=== PATIENT | female | born 1950 | race Caucasian/White ===

== ENCOUNTER 2020-10-03 07:44 | Outpatient (REF) | payer MEDICARE, SELFPAY ==
[2020-10-03 11:28] LABS: Estimated Average Glucose 146 mg/dL; Hemoglobin A1c % 6.7 %
[2020-10-03 12:42] LABS: Creatinine Urine 179.69 mg/dL; Microalbum/Creatinine Ratio Ur 5.5 ug/mg cr
== END 2020-10-03 07:45 | disposition home or self-care (01) ==
LOC: HO.MANLR 07:44
PROVIDERS: PCP Internal Medicine; Visit Provider Internal Medicine
DX: E11.9 Type 2 diabetes mellitus without complications (principal)
CPT/HCPCS: 82043; 83036

== ENCOUNTER 2021-01-09 10:37 | Outpatient (REF) | payer MEDICARE, SELFPAY ==
[2021-01-09 12:58] LABS: Estimated Average Glucose 140 mg/dL; Hemoglobin A1c % 6.5 %
[2021-01-09 13:31] LABS: Alanine Aminotransferase 39 U/L (0-31); Albumin Level 4.3 g/dL (3.5-5.0); Alkaline Phosphatase 78 U/L (39-117); Anion Gap 13 (12-20); Aspartate Amino Transferase 30 U/L (5-31); Bilirubin Total 0.5 mg/dL (0.0-1.0); Blood Urea Nitrogen 15 mg/dL (9-16); Calcium 9.2 mg/dL (8.4-10.2); Carbon Dioxide 29 mmol/L (22-29); Chloride 102 mmol/L (96-108); Cholesterol 151 mg/dL; Estimated Glomerular Filt Rate > 60; Glucose Fasting 153 mg/dL (60-99); HDL Cholesterol 37 mg/dL; LDL Cholesterol Calculated 89 mg/dl; Sodium 140 mmol/L (135-145); Total Protein 7.1 g/dL (6.5-8.0); Triglycerides 129 mg/dL
== END 2021-01-09 10:38 | disposition home or self-care (01) ==
LOC: HO.MANLDS 10:37
PROVIDERS: PCP Internal Medicine; Visit Provider Internal Medicine
DX: E11.9 Type 2 diabetes mellitus without complications (principal)
CPT/HCPCS: 36415; 80053; 80061; 83036

== ENCOUNTER 2021-04-18 08:21 | Outpatient (REF) | payer MEDICARE, SELFPAY ==
[2021-04-18 13:14] LABS: Estimated Average Glucose 154 mg/dL
== END 2021-04-18 08:22 | disposition home or self-care (01) ==
LOC: HO.MANLDS 08:21
PROVIDERS: PCP Internal Medicine; Visit Provider Internal Medicine
DX: E11.9 Type 2 diabetes mellitus without complications (principal)
CPT/HCPCS: 36415; 83036

== ENCOUNTER 2021-07-27 08:05 | Outpatient (REF) | payer MEDICARE, SELFPAY ==
[2021-07-27 11:27] LABS: Estimated Average Glucose 174 mg/dL; Hemoglobin A1c % 7.7 %
== END 2021-07-27 08:06 | disposition home or self-care (01) ==
LOC: HO.MANLDS 08:05
PROVIDERS: PCP Internal Medicine; Visit Provider Internal Medicine
DX: E11.9 Type 2 diabetes mellitus without complications (principal)
CPT/HCPCS: 36415; 83036

== ENCOUNTER 2021-10-02 10:57 | Outpatient (REF) | payer MEDICARE, SELFPAY ==
[2021-10-02 14:18] LABS: Estimated Average Glucose 197 mg/dL; Hemoglobin A1c % 8.5 %
== END 2021-10-02 10:58 | disposition home or self-care (01) ==
LOC: HO.MANLDS 10:57
PROVIDERS: PCP Internal Medicine; Visit Provider Internal Medicine
DX: E11.9 Type 2 diabetes mellitus without complications (principal)
CPT/HCPCS: 36415; 83036

== ENCOUNTER 2022-01-01 11:41 | Outpatient (REF) | payer MEDICARE, SELFPAY ==
[2022-01-01 13:43] LABS: Estimated Average Glucose 169 mg/dL; Hemoglobin A1c % 7.5 %
[2022-01-01 14:13] LABS: Creatinine Urine 286.75 mg/dL; Microalbum/Creatinine Ratio Ur 7.3 ug/mg cr
[2022-01-01 14:16] LABS: Alanine Aminotransferase 43 U/L (0-31); Albumin Level 4.3 g/dL (3.5-5.0); Alkaline Phosphatase 67 U/L (39-117); Anion Gap 15 (12-20); Aspartate Amino Transferase 35 U/L (5-31); Bilirubin Total 0.7 mg/dL (0.0-1.0); Blood Urea Nitrogen 17 mg/dL (9-16); Calcium 9.7 mg/dL (8.4-10.2); Carbon Dioxide 27 mmol/L (22-29); Chloride 101 mmol/L (96-108); Cholesterol 140 mg/dL; Estimated Glomerular Filt Rate > 60; Glucose Fasting 135 mg/dL (60-99); HDL Cholesterol 31 mg/dL; LDL Cholesterol Calculated 81 mg/dl; Potassium 3.6 mmol/L (3.3-5.1); Sodium 139 mmol/L (135-145); Total Protein 7.3 g/dL (6.5-8.0); Triglycerides 140 mg/dL
== END 2022-01-01 11:42 | disposition home or self-care (01) ==
LOC: HO.MANLDS 11:41
PROVIDERS: PCP Internal Medicine; Visit Provider Internal Medicine
DX: E11.9 Type 2 diabetes mellitus without complications (principal)
CPT/HCPCS: 36415; 80053; 80061; 82043; 83036

== ENCOUNTER 2022-04-30 08:28 | Outpatient (REF) | payer MEDICARE, SELFPAY ==
[2022-04-30 11:59] LABS: Estimated Average Glucose 154 mg/dL
[2022-04-30 12:45] LABS: Alanine Aminotransferase 30 U/L (0-31); Albumin Level 4.1 g/dL (3.5-5.0); Alkaline Phosphatase 77 U/L (39-117); Anion Gap 12 (12-20); Aspartate Amino Transferase 27 U/L (5-31); Bilirubin Total 0.4 mg/dL (0.0-1.0); Blood Urea Nitrogen 22 mg/dL (9-16); Calcium 9.3 mg/dL (8.4-10.2); Carbon Dioxide 28 mmol/L (22-29); Chloride 104 mmol/L (96-108); Cholesterol 123 mg/dL; Estimated Glomerular Filt Rate > 60; Glucose Random 162 mg/dL (60-115); HDL Cholesterol 31 mg/dL; LDL Cholesterol Calculated 63 mg/dl; Potassium 3.9 mmol/L (3.3-5.1); Sodium 140 mmol/L (135-145); Triglycerides 149 mg/dL
== END 2022-04-30 08:29 | disposition home or self-care (01) ==
LOC: HO.MANLDS 08:28
PROVIDERS: Visit Provider Internal Medicine
DX: E11.9 Type 2 diabetes mellitus without complications (principal)
CPT/HCPCS: 36415; 80053; 80061; 83036

== ENCOUNTER 2022-05-03 11:15 | Outpatient (REF) | payer MEDICARE, SELFPAY ==
--- NOTE | ~2022-05-03 | XR_ITS ---
EXAMINATION: XR KNEE, LEFT CLINICAL INFORMATION: Pain. COMPARISON: None. TECHNIQUE: 4 views of the left knee. FINDINGS: The tricompartmental joint space is maintained. There is anterior superior patellar enthesophyte. There is no visible acute fracture, dislocation or subluxation. No bony erosive changes. The soft tissues are normal. XR/XR knee LT 3V IMPRESSION: Mild degenerative changes medial and patellofemoral compartment. No visible acute fracture, dislocation or loose body is seen. Anterior superior patellar enthesophyte.
== END 2022-05-03 11:16 | disposition home or self-care (01) ==
LOC: HO.XRAY 11:15
PROVIDERS: PCP Internal Medicine; Visit Provider Internal Medicine
DX: M25.562 Pain in left knee (principal)
CPT/HCPCS: 73562

== ENCOUNTER 2022-08-02 08:02 | Outpatient (REF) | payer MEDICARE, SELFPAY ==
[2022-08-02 11:36] LABS: Estimated Average Glucose 171 mg/dL; Hemoglobin A1c % 7.6 %
== END 2022-08-02 08:03 | disposition home or self-care (01) ==
LOC: HO.MANLDS 08:02
PROVIDERS: Visit Provider Internal Medicine
DX: E11.9 Type 2 diabetes mellitus without complications (principal)
CPT/HCPCS: 36415; 83036

== ENCOUNTER 2022-10-08 07:18 | Outpatient (REF) | payer MEDICARE, SELFPAY ==
--- NOTE | ~2022-10-08 | MR_ITS ---
EXAMINATION: MR KNEE WITHOUT CONTRAST, LEFT CLINICAL INFORMATION: Left knee pain with medial swelling. COMPARISON: Left knee radiographs dated 05/03/2022. TECHNIQUE: MRI of the knee without contrast was performed using routine sequences on a high-field scanner. FINDINGS: MENISCI: Medial Meniscus: Nondisplaced, oblique inner margin/tibial articular surface tear of the meniscal body and posterior horn with inner margin blunting of the posterior root. There is a lobulated parameniscal cyst adjacent to the anterior aspect of the meniscal body measuring 2.4 x 0.8 x 1.9 cm with mild adjacent soft tissue edema. Lateral Meniscus: Intact LIGAMENTS: Cruciate: Intact Collateral: Intact EXTENSOR MECHANISM: Intact ARTICULAR CARTILAGE/BONE: Patellofemoral Compartment: Articular cartilage thinning with areas of full-thickness loss at the superior aspect of the patellar median ridge extending to both the medial and lateral patellar facet. Mild underlying subchondral cystic change/marrow edema. Central trochlea signal heterogeneity. Tiny marginal osteophytes. Medial Compartment: Weight-bearing articular cartilage thinning and signal heterogeneity with tiny marginal osteophytes. Lateral Compartment: Posterior weight-bearing lateral femoral condyle and lateral tibial plateau full-thickness articular cartilage defects measuring 0.7 and 0.4 cm in AP dimension, respectively. Tiny marginal osteophytes. JOINT FLUID AND BURSAE: Trace joint effusion and trace Jaeger's cyst. MR/MR knee LT wo con IMPRESSION: 1. Nondisplaced, oblique inner margin/tibial articular surface tear of the medial meniscal body and posterior horn with inner margin blunting of the posterior root. Parameniscal cyst adjacent to the anterior aspect of the meniscal body measuring up to 2.4 cm with mild adjacent soft tissue edema. 2. Mild tricompartmental osteoarthritis. Trace joint effusion and trace Jaeger's cyst.
== END 2022-10-08 07:19 | disposition home or self-care (01) ==
LOC: HO.MRI 07:18
PROVIDERS: Visit Provider Internal Medicine
DX: M25.562 Pain in left knee (principal)
CPT/HCPCS: 73721

== ENCOUNTER 2022-11-13 07:38 | Outpatient (REF) | payer MEDICARE, SELFPAY ==
[2022-11-13 12:29] LABS: Estimated Average Glucose 200 mg/dL; Hemoglobin A1c % 8.6 %
[2022-11-13 12:30] LABS: Alanine Aminotransferase 38 U/L (0-31); Albumin Level 3.8 g/dL (3.5-5.0); Alkaline Phosphatase 95 U/L (39-117); Anion Gap 11 (12-20); Aspartate Amino Transferase 27 U/L (5-31); Bilirubin Total 0.4 mg/dL (0.0-1.0); Blood Urea Nitrogen 19 mg/dL (9-16); Calcium 9.2 mg/dL (8.4-10.2); Carbon Dioxide 29 mmol/L (22-29); Chloride 103 mmol/L (96-108); Cholesterol 141 mg/dL; Estimated Glomerular Filt Rate > 60; Glucose Random 203 mg/dL (60-115); HDL Cholesterol 29 mg/dL; LDL Cholesterol Calculated 80 mg/dl; Potassium 3.5 mmol/L (3.3-5.1); Sodium 139 mmol/L (135-145); Total Protein 6.4 g/dL (6.5-8.0); Triglycerides 161 mg/dL
== END 2022-11-13 07:39 | disposition home or self-care (01) ==
LOC: HO.MANLDS 07:38
PROVIDERS: Visit Provider Internal Medicine
DX: E11.9 Type 2 diabetes mellitus without complications (principal)
CPT/HCPCS: 36415; 80053; 80061; 83036

== ENCOUNTER 2023-01-24 09:16 | Outpatient (REF) | payer MEDICARE, SELFPAY ==
[2023-01-24 12:22] LABS: Estimated Average Glucose 171 mg/dL; Hemoglobin A1c % 7.6 %
[2023-01-24 13:06] LABS: Creatinine Urine 201.55 mg/dL; Microalbum/Creatinine Ratio Ur 9.9 ug/mg cr
== END 2023-01-24 09:17 | disposition home or self-care (01) ==
LOC: HO.MANLDS 09:16
PROVIDERS: Visit Provider Internal Medicine
DX: E11.9 Type 2 diabetes mellitus without complications (principal)
CPT/HCPCS: 36415; 82043; 83036

== ENCOUNTER 2023-05-05 08:55 | Outpatient (REF) | payer MEDICARE, SELFPAY ==
[2023-05-05 14:09] LABS: Estimated Average Glucose 131 mg/dL; Hemoglobin A1c % 6.2 %
[2023-05-05 14:26] LABS: Alanine Aminotransferase 32 U/L (0-31); Albumin Level 3.9 g/dL (3.5-5.0); Alkaline Phosphatase 70 U/L (39-117); Anion Gap 15 (12-20); Aspartate Amino Transferase 29 U/L (5-31); Bilirubin Total 0.4 mg/dL (0.0-1.0); Blood Urea Nitrogen 19 mg/dL (9-16); Calcium 9.8 mg/dL (8.4-10.2); Carbon Dioxide 25 mmol/L (22-29); Chloride 103 mmol/L (96-108); Cholesterol 139 mg/dL; Estimated Glomerular Filt Rate > 60; Glucose Random 146 mg/dL (60-115); HDL Cholesterol 35 mg/dL; LDL Cholesterol Calculated 78 mg/dl; Potassium 3.9 mmol/L (3.3-5.1); Sodium 139 mmol/L (135-145); Total Protein 7.4 g/dL (6.5-8.0); Triglycerides 134 mg/dL
[2023-05-05 14:56] LABS: Creatinine Urine 155.99 mg/dL; Microalbum/Creatinine Ratio Ur 9.6 ug/mg cr
== END 2023-05-05 08:56 | disposition home or self-care (01) ==
LOC: HO.MANLDS 08:55
PROVIDERS: Visit Provider Internal Medicine
DX: E11.9 Type 2 diabetes mellitus without complications (principal)
CPT/HCPCS: 36415; 80053; 80061; 82043; 83036

== ENCOUNTER 2023-08-25 09:20 | Outpatient (REF) | payer MEDICARE, SELFPAY ==
[2023-08-25 13:31] LABS: Estimated Average Glucose 128 mg/dL; Hemoglobin A1c % 6.1 % (<6.0)
[2023-08-25 13:43] LABS: Alanine Aminotransferase 28 U/L (0-31); Albumin Level 4.1 g/dL (3.5-5.0); Alkaline Phosphatase 58 U/L (39-117); Anion Gap 14 (12-20); Aspartate Amino Transferase 29 U/L (5-31); Bilirubin Total 0.4 mg/dL (0.0-1.0); Blood Urea Nitrogen 17 mg/dL (9-16); Calcium 9.5 mg/dL (8.4-10.2); Carbon Dioxide 26 mmol/L (22-29); Chloride 103 mmol/L (96-108); Cholesterol 136 mg/dL (<200); Estimated Glomerular Filt Rate > 60; Glucose Random 138 mg/dL (60-115); HDL Cholesterol 31 mg/dL (>40); LDL Cholesterol Calculated 69 mg/dL (<100); Potassium 3.4 mmol/L (3.3-5.1); Sodium 140 mmol/L (135-145); Total Protein 7.4 g/dL (6.5-8.0); Triglycerides 181 mg/dL (<150)
== END 2023-08-25 09:21 | disposition home or self-care (01) ==
LOC: HO.MANLDS 09:20
PROVIDERS: Physician Assistant; Visit Provider Internal Medicine
DX: E11.9 Type 2 diabetes mellitus without complications (principal)
CPT/HCPCS: 36415; 80053; 80061; 83036

== ENCOUNTER 2023-12-23 08:35 | Outpatient (REF) | payer MEDICARE, SELFPAY ==
[2023-12-23 14:01] LABS: Alanine Aminotransferase 20 U/L (0-31); Albumin Level 3.9 g/dL (3.5-5.0); Alkaline Phosphatase 65 U/L (39-117); Anion Gap 10 (12-20); Aspartate Amino Transferase 20 U/L (5-31); Bilirubin Total 0.5 mg/dL (0.0-1.0); Blood Urea Nitrogen 16 mg/dL (9-16); Calcium 9.7 mg/dL (8.4-10.2); Carbon Dioxide 30 mmol/L (22-29); Chloride 103 mmol/L (96-108); Cholesterol 141 mg/dL (<200); Estimated Glomerular Filt Rate > 60; Glucose Random 158 mg/dL (60-115); HDL Cholesterol 36 mg/dL (>40); LDL Cholesterol Calculated 84 mg/dL (<100); Potassium 3.3 mmol/L (3.3-5.1); Sodium 140 mmol/L (135-145); Total Protein 7.7 g/dL (6.5-8.0); Triglycerides 109 mg/dL (<150)
[2023-12-23 16:24] LABS: Estimated Average Glucose 140 mg/dL; Hemoglobin A1c % 6.5 % (<6.0)
== END 2023-12-23 08:36 | disposition home or self-care (01) ==
LOC: HO.MANLDS 08:35
PROVIDERS: Visit Provider Physician Assistant
DX: E11.9 Type 2 diabetes mellitus without complications (principal)
CPT/HCPCS: 36415; 80053; 80061; 83036

== ENCOUNTER 2024-03-24 07:37 | Outpatient (REF) | payer MEDICARE, SELFPAY ==
[2024-03-24 13:57] LABS: Estimated Average Glucose 123 mg/dL; Hemoglobin A1c % 5.9 % (<6.0)
== END 2024-03-24 07:38 | disposition home or self-care (01) ==
LOC: HO.MANLDS 07:37
PROVIDERS: Visit Provider Physician Assistant
DX: E11.9 Type 2 diabetes mellitus without complications (principal)
CPT/HCPCS: 36415; 83036

== ENCOUNTER 2024-07-06 11:48 | Outpatient (REF) | payer MEDICARE, SELFPAY ==
[2024-07-06 14:09] LABS: MANUAL DIFF FLAG NO
[2024-07-06 14:17] LABS: Basophils Percent Auto 0.6 % (0-2); Eosinophils Absolute Auto 0.2 X10*3/uL (0.0-0.4); Eosinophils Percent Auto 2.3 % (0-4); Hematocrit 38.2 % (37.0-47.0); Hemoglobin 13.2 g/dl (12.0-16.0); Imm Gran Abs Auto 0.02 X10*3/uL (0.00-0.03); Imm Gran Pct Auto 0.3 % (0.0-0.4); Lymphocytes Percent Auto 30.5 % (20-40); Mean Corpuscular HGB Conc 34.6 g/dl (31.0-35.0); Mean Corpuscular Volume 92.7 fL (80.0-98.0); Mean Platelet Volume 10.2 fL (9.4-12.3); Monocytes Absolute Auto 0.6 X10*3/uL (0.1-1.2); Monocytes Percent Auto 8.5 % (2-11); Neutrophils Absolute Auto 3.8 x10*3/uL (2.0-8.3); Neutrophils Percent Auto 57.8 % (45-73); Platelet Count 233 X10*3/uL (160-400); Red Blood Count 4.12 X10*6/uL (4.20-5.50); Red Cell Distribution Width 11.9 % (11.0-16.0); White Blood Count 6.6 X10*3/uL (4.8-10.8)
[2024-07-06 14:34] LABS: Alanine Aminotransferase 23 U/L (0-31); Alkaline Phosphatase 55 U/L (39-117); Anion Gap 10 (12-20); Aspartate Amino Transferase 19 U/L (5-31); Bilirubin Total 0.5 mg/dL (0.0-1.0); Blood Urea Nitrogen 15 mg/dL (9-16); Calcium 9.3 mg/dL (8.4-10.2); Carbon Dioxide 27 mmol/L (22-29); Chloride 105 mmol/L (96-108); Cholesterol 139 mg/dL (<200); Estimated Glomerular Filt Rate > 60; Glucose Random 111 mg/dL (60-115); HDL Cholesterol 37 mg/dL (>40); LDL Cholesterol Calculated 81 mg/dL (<100); Potassium 3.8 mmol/L (3.3-5.1); Sodium 138 mmol/L (135-145); Total Protein 7.1 g/dL (6.5-8.0); Triglycerides 107 mg/dL (<150)
[2024-07-06 14:40] LABS: Estimated Average Glucose 117 mg/dL; Hemoglobin A1c % 5.7 % (<6.0)
[2024-07-06 14:53] LABS: Vitamin D 25-OH Total 49.1 ng/mL (>30)
== END 2024-07-06 11:49 | disposition home or self-care (01) ==
LOC: HO.WFDLDS 11:48
PROVIDERS: Visit Provider Internal Medicine
DX: E11.9 Type 2 diabetes mellitus without complications (principal); I10 Essential (primary) hypertension
CPT/HCPCS: 36415; 80053; 80061; 82306; 83036; 85025

== ENCOUNTER 2025-02-16 09:02 | Outpatient (REF) | payer MEDICARE, SELFPAY ==
--- OUTSIDE RECORDS SUMMARY | 2025-02-16 09:50 | XMS_ITS | Continuity of Care Document ---
Author Organization [facility] Address [address] [place] [address] Phone Care Team Providers Care Delivery Lead Name Role Phone Alex BARRAZA, RVT, GERALD, Mykel Unavailable U navailable Allergies, Adverse Reactions, Alerts Substance Reaction Status Criticality POTASSIUM CLAVULANATE Active No Inf ormation AMOXICILLIN TRIHYDRATE Active No In formation Procedures Procedure Date Office/Outpt E&M Established 15 Mins- CT & [place] Duplex Scan-extrem Veins; Comp- CT & [place] Duplex Scan-extrem Veins; Uni/ CT & [place] N Duplex Scan-extrem Veins; Uni/ CT & [place] N Inj Scleros Solut; Mx Veins 1- CT & [place] N Ultrason Guidan Needle Bx-rad- CT & [place] N Endovenous Laser, 1st Vein- CT & [place] Duplex Scan-extrem Veins; Uni/ CT & [place] N Duplex Scan-extrem Veins; Uni/ CT & [place] N Inj Scleros Solut; Mx Veins 1- CT & [place] N Ultrason Guidan Needle Bx-rad- CT & [place] N Varithena, Single Truncal Vein - CT & [place] Endovenous Laser, 1st Vein- CT & [place] Office/Outpt E&M Established 10 Mins- Te lemedicine CT & [place] Offic Cons New/estab Mod-hi 60 Duplex Scan-extrem Veins; Comp 24 Advance Directives Directive Yes / No Effective Date File Name Other Directive No 10/14/2024 N/A WARNING:The information contained in this section is historical and is provided for information only and does not constitute a legal document or any assurance that the information is still accurate. Please verify the information with the luu of the legal document before using it for clinical purposes. Encounters Encounter Description Practice Location Reason(s) For Visit Diagnoses Date Provider Providers Copied on Encounter Office/Outpt E&M Established 15 Mins- CT & [place] [facility], [address] [place] [address] Dr Jerome [address]Suite [place], [id number], tel:[phone] [facility] [place] [facility] Cramp and spasmRestless legs syndromePrurit us, unspecifiedTyp e 2 diabetes mellitus without complicationsE ssential (primary) hypertensionLo calized edema 4 Alex BARRAZA RVT, RPVI Robert. [address] [place] [address], [id number] , [place]. tel:[phone] Referring Provider: Neal Georges, [address] [place], [address]. tel:[phone] [facility], [address] [place] [address] Dr Jerome [address]SuC[place]illo [place], [id number], [place] tel:[phone] [facility] Varicose veins of bilateral lower extremities with pain 4 Alex BARRAZA RVT, RPVI Robert. [address] [place] [address], [id number] , [place]. tel:[phone] Referring Provider: Neal Georges, [address] [place], [address]. tel:[phone] [facility], [address] [place] [address] Dr Jerome [address]SuC[place]illo [place], [id number], tel:[phone] [facility] Encounter for follow-up examination after completed treatment for conditions other than malignant neoplasmChroni c venous hypertension (idiopathic) with other complications of left lower extremity 4 Alex BARRAZA RVT, GERALD Hogue. [address], [address], [place], [place], [id number] , [place]. tel:[phone] Referring Provider: Neal Georges, [address], [place], [address]. tel:[phone] [facility], [address] [place] [address] Dr [address], [id number], [place] tel:[phone] [facility] - [place] [facility] Encounter for follow-up examination after completed treatment for conditions other than malignant nePain in left leg 4 Alex BARRAZA RVT, GERALD Hogue. [address], [address], [place], [place], [id number] , [place]. [phone] Referring Provider: Neal Georges, [address], [place], [address]. tel:[phone] [facility], [address] [place] [address] Dr [address], [id number], [place] tel:[phone] [facility] [place] [facility] Varicose veins of left lower extremity with other complications 4 Matt Cormier . [address], [address], [place], [place], [id number] , [place]. [phone] Referring Provider: Neal Georges, [address], [place], [address]. tel:[phone] [facility], [address] [place] [address] [address] [address], [id number], [place] tel:[phone] [facility] [place] [facility] Varicose veins of left lower extremity with other complications 4 Alex BARRAZA RVT, GERALD Hogue. [address], [address], [place], [place], [id number] , [place]. [phone] Referring Provider: Neal Georges, [address], [place], [address]. tel:[phone] [facility], [address] [place] [address] [address]Suite [place] Bar[place], [id number], [place] tel:[phone] CVR - [facility] Encounter for follow-up examination after completed treatment for conditions other than malignant neoplasmPain in right leg 4 Alex BARRAZA RVT, GREALD Hogue. [address], Suite [facility], [place], [place], [id number] , [place]. [phone] Referring Provider: Neal Georges, [address], [place], [address]. tel:[phone] [facility], [address] [place] [address] [address] [place]illo Bar[place], [id number], [place] tel:[phone] CVR - [facility] Encounter for follow-up examination after completed treatment for conditions other than malignant neoplasmVarico se veins of right lower extremity with pain 4 Alex BARRAZA RVT, GERALD Hogue. [address], [address], [place], [place], [id number] , [place]. [phone] Referring Provider: Neal Georges, [address], [place], [address]. tel:[phone] [facility], [address] [place] [address] [address] [place]illo Bar[place], [id number], [place] tel:[phone] CVR - [facility] Varicose veins of right lower extremity with other complications 4 Alex BARRAZA RVT, RPVI Robert. [address], [address], [place], [place], [id number] , [place]. [phone] Referring Provider: Neal Georges, [address], [place], [address]. tel:[phone] [facility], [address] [place] [address] [address] [address], [id number], [place] tel:[phone] [facility] [place] [facility] Varicose veins of right lower extremity with other complications Oct-3 0 4 Alex BARRAZA RVT, GERALD Hogue. [address], [address], [place], [id number] , [place]. tel:[phone] Referring Provider: Neal Georges, [address] [place], [address]. tel:[phone] [facility], [address] [place] [address] [address] [address], [id number], [place] tel:[phone] [facility] [place] [facility] Varicose veins of right lower extremity with other complications Oct-2 4 Alex BARRAZA RVT, GERALD [place]. [address] [place] [address], Suite [facility], [place], [id number] , [place]. tel:[phone] Referring Provider: Neal Georges, [address] [place], [address]. tel:[phone] [facility], [address] [place] [address] Dr Jerome [address] [place], [id number], [place] tel:[phone] [facility] No Information Jul-2 4 Alex BARRAZA RVT, GERALD Hogue. [address] [place] [address], [address], [place], [id number] , [place]. tel:[phone] Office/Outpt E&M Established 10 Mins- Telemedicine CT & [place] [facility], [address] [place] [address] Dr Jerome [address], [id number], [place] tel:[phone] [facility] Chronic venous hypertension (idiopathic) with other complications of bilateral lower extremityCramp and spasmRestless legs syndromeType 2 diabetes mellitus without complicationsE ssential (primary) hypertensionPr uritus, unspecified Apr-0 4 Alex BARRAZA RVT, GERALD Hogue. [address] [facility], [address], [place], [id number] , [place]. tel:[phone] Referring Provider: Neal Georges, [address], [place], [address]. tel:[phone] Offic Cons New/estab Mod-hi 60 [facility], [address], [place], [id number], tel:[phone] [facility] Varicose veins of bilateral lower extremities with other complicationsP ain in right lower legPain in left lower legPain in right legType 2 diabetes mellitus without complicationsR estless legs syndromeEssent ial (primary) hypertensionVe nous insufficiency (chronic) (peripheral)Pr uritus, unspecifiedPai n in left legCramp and spasmLocalized edema 4 Alex BARRAZA RVT, GERALD Hogue. [address] [place] [address], [place], [place], [id number] , [place]. tel:[phone] Referring Provider: Neal Georges, [address], [place], [address]. tel:[phone] [facility], [address] [place] [address] [address], [place], [id number], [place] tel:[phone] CVR - [facility] Chronic venous hypertension (idiopathic) with other complications of bilateral lower extremity 4 Alex BARRAZA RVT, GERALD Hogue. [address] [place] [address], [place], [place], [id number] , [place]. tel:[phone] Referring Provider: Neal Georges, [address], [place], [address]. tel:[phone] Family History Family Member Type Diagnosis Age At Onset No Information Payers Payer name Insurance type Covered republican ID Nia rodriguez(s) [facility] Medicare Advantage [id number] Social History Type Description Quantity Date Captured Comments Alcohol Use Details Unknown Caffeine Use Details Unknown Tobacco Use Status Current non-smoker Smoking Status Never Smoker Non-Smoking Tobacco Use Details : No Details Available : No Details Available Sex Female Vital Signs Date / Time: Height Weight BMI Pulse Rate Blood Pressure Temperature Respiratory Rate Body Surface Area Head Circumference Head Circ. Percentile Wt./Josiah. Percentile BMI percentile Pulse Ox Inhaled Ox 91.630 kg (202.00 lbs) 33.7 0 kg/m eter (2) 140/70 mm[Hg] Chief Complaint And Reason For Visit No Information Reason For Referral Reason For Referral No Information Plan Of Treatment Date Type Action Status Goal Diet education completed Goal Diet education completed Referral Ordered: Weight management: Referral to physician timeframe: 3 Months (related to Body mass index (BMI) 33.0-33.9, adult) ordered Referral Ordered: Weight management: Referral to physician timeframe: 3 Months (related to Body mass index (BMI) 33.0-33.9, adult) ordered Appointment Malia Miller BOOKED Appointment Malia Miller BOOKED History Of Present Illness Encounter Date Complaint History Of Prese nt Illness No Information Functional Status Date Functional Assessmen t No Information Instructions Date Instruction Additional Infor matcasper Diet education Related to Body mass index (BMI) 33.0-33.9, adult Giving Encouragement to exercise Related to Body mass index (BMI) 33.0-33.9, adult Lifestyle education Related to B donavon mass index (BMI) 33.0-33.9, adult Compression stocking usage as conservative measure Related to Localized edema Patient education booklet given Related to Localized edema Compression stocking usage as conservative measure Related to Chronic venous hypertension (idiopathic) with other complications of bilateral lower extremity Patient education booklet given Related to Chronic venous hypertension (idiopathic) with other complications of bilateral lower extremity Diet education Related to Body mass index (BMI) 33.0-33.9, adult Giving Encouragement to exercise Related to Body mass index (BMI) 33.0-33.9, adult Lifestyle education Related to B donavon mass index (BMI) 33.0-33.9, adult Patient education booklet given Related to Varicose veins of bilateral lower extremities with other complications Assessments Type Assessment Date No Information Patient Care Teams Name Effective Dates (start - stop) Status Members No Information
--- OUTSIDE RECORDS SUMMARY | 2025-02-16 09:50 | XMS_ITS | Data Portability ---
Author Organization [facility] Address [address] [place] [address] Assessment Encounter Date Assessment Date Assessment LastModified by Organization Details LastModified Time 03/29/2024 03/29/2024 [id number] [place] [id number] (WOOD INSPECTOR) MDM MODERATE MUST MEET 2 OUT OF 3 ELEMENTS: PROBLEMS, DATA OR RISK ELEMENT 1: PROBLEMS ADDRESSED 1 OR MORE CHRONIC ILLNESS WITH EXACERBATION OR 2 OR MORE STABLE CHRONIC ILLNESSES OR 1 UNDIAGNOSED NEW PROBLEM OR 1 ACUTE ILLNESS W/SYMPTOMS OR 1 ACUTE COMPLICATED INJURY ELEMENT 2: DATA MUST MEET 1 OF 3 CATEGORIES CATEGORY 1: REVIEW OF PRIOR EXTERNAL NOTES, REVIEW OF RESULTS, ORDERING OF EACH TEST, ASSESSMENT REQUIRING INDEPENDENT HISTORIAN OR CATEGORY 2: INDEPENDENT INTERPRETATION OF TESTS BY ANOTHER PHYSICIAN OR SPECIALIST OR CATEGORY 3: DISCUSSION OF MGT OR TEST INTERPRETATION W/EXTERNAL PHYSICIAN OR SPECIALIST ELEMENT 3: RISK RISK OF COMPLICATIONS AND/OR MORBIDITY OR MORTALITY OF PATIENT MANAGEMENT PROVIDER MUST THOROUGHLY DOCUMENT EACH ELEMENT THAT IS COVERED Not available 03/29/2024 11:37:32 05/26/2024 05/26/2024 [id number] [place] [id number] (WOOD INSPECTOR) : MDM LOW MUST MEET 2 OF 3 ELEMENTS: PROBLEMS, DATA OR RISK ELEMENT 1: PROBLEMS ADDRESSED (LOW): 2 OR MORE SELF-LIMITED OR MINOR PROBLEMS OR 1 STABLE CHRONIC ILLNESS OR 1 ACUTE UNCOMPLICATED ILLNESS OR INJURY ELEMENT 2: DATA TO BE REVISED AND ANALYZED (LOW) MUST MEET 1 OF 2 CATEGORIES: CATEGORY 1. REVIEW OF PRIOR EXTERNAL NOTES/RESULTS, ORDERING OF TEST(S) CATEGORY 2. ASSESSMENT REQUIRING INDEPENDENT HISTORIAN(S) INCLUDE WHO THE HISTORIAN IS AND RELATION TO PT AND WHY PT IS UNABLE TO GIVE COMPLETE HISTORY ELEMENT 3: RISK (LOW) RISK OF COMPLICATIONS AND/OR MORBIDITY OR MORTALITY OF PATIENT MANAGEMENT PROVIDER MUST THOROUGHLY DOCUMENT ALL OF THE ELEMENTS COVERED Not available 05/26/2024 11:48:22 07/09/2024 07/09/2024 [id number] [place] [id number] (WOOD INSPECTOR) MDM MODERATE MUST MEET 2 OUT OF 3 ELEMENTS: PROBLEMS, DATA OR RISK ELEMENT 1: PROBLEMS ADDRESSED 1 OR MORE CHRONIC ILLNESS WITH EXACERBATION OR 2 OR MORE STABLE CHRONIC ILLNESSES OR 1 UNDIAGNOSED NEW PROBLEM OR 1 ACUTE ILLNESS W/SYMPTOMS OR 1 ACUTE COMPLICATED INJURY ELEMENT 2: DATA MUST MEET 1 OF 3 CATEGORIES CATEGORY 1: REVIEW OF PRIOR EXTERNAL NOTES, REVIEW OF RESULTS, ORDERING OF EACH TEST, ASSESSMENT REQUIRING INDEPENDENT HISTORIAN OR CATEGORY 2: INDEPENDENT INTERPRETATION OF TESTS BY ANOTHER PHYSICIAN OR SPECIALIST OR CATEGORY 3: DISCUSSION OF MGT OR TEST INTERPRETATION W/EXTERNAL PHYSICIAN OR SPECIALIST ELEMENT 3: RISK RISK OF COMPLICATIONS AND/OR MORBIDITY OR MORTALITY OF PATIENT MANAGEMENT PROVIDER MUST THOROUGHLY DOCUMENT EACH ELEMENT THAT IS COVERED Not available 07/09/2024 10:44:38 11/17/2024 11/17/2024 [id number] [place] [id number] (WOOD INSPECTOR) MDM MODERATE MUST MEET 2 OUT OF 3 ELEMENTS: PROBLEMS, DATA OR RISK ELEMENT 1: PROBLEMS ADDRESSED 1 OR MORE CHRONIC ILLNESS WITH EXACERBATION OR 2 OR MORE STABLE CHRONIC ILLNESSES OR 1 UNDIAGNOSED NEW PROBLEM OR 1 ACUTE ILLNESS W/SYMPTOMS OR 1 ACUTE COMPLICATED INJURY ELEMENT 2: DATA MUST MEET 1 OF 3 CATEGORIES CATEGORY 1: REVIEW OF PRIOR EXTERNAL NOTES, REVIEW OF RESULTS, ORDERING OF EACH TEST, ASSESSMENT REQUIRING INDEPENDENT HISTORIAN OR CATEGORY 2: INDEPENDENT INTERPRETATION OF TESTS BY ANOTHER PHYSICIAN OR SPECIALIST OR CATEGORY 3: DISCUSSION OF MGT OR TEST INTERPRETATION W/EXTERNAL PHYSICIAN OR SPECIALIST ELEMENT 3: RISK RISK OF COMPLICATIONS AND/OR MORBIDITY OR MORTALITY OF PATIENT MANAGEMENT PROVIDER MUST THOROUGHLY DOCUMENT EACH ELEMENT THAT IS COVERED Not available 11/17/2024 09:29:32 12/14/2024 12/14/2024 Patient agreed and verbally consents to this audio and video Telehealth appt via a secure platform [email or web address] Not available 12/14/2024 15:11:39 Plan of Treatment Reminders Order Date Submit Date Provider Last Modified By Organization Details Last Modified Time Details Appointments FOLLOW UP 15 2024 11:30A M DR WOODRUFF Not available Not available Not available MEDICARE ANNUAL WELLNESS 2024 10:30A M DR WOODRUFF Not available Not available Not available Lab HbA1c (hemoglob in A1c), blood 2024 025 [facility], [address] [place] [address], [id number], 11/17/2024 09:39:03 CMP, serum or plasma 2024 025 [facility], [address] [place] [address], [id number], 11/17/2024 09:39:03 HbA1c (hemoglob in A1c), blood 2023 024 [facility], [address] [place] [address], [id number], 07/07/2024 11:09:45 CMP, serum or plasma 2023 024 [facility], [address] [place] [address], [id number], 07/07/2024 11:09:45 CBC 2023 024 [facility], [address] [place] [address], [address], 03/29/2024 11:50:51 vitamin D, 25-hydrox y, total, serum 2023 024 [facility], [address] [place] [address], [id number], 03/29/2024 11:50:51 lipid panel, blood 2023 024 [facility], [address] [place] [address], [address], 03/29/2024 11:50:51 Referral None recorded. Procedures None recorded. Surgeries None recorded. Imaging None recorded. Medication Orders valacyclo vir 500 mg tablet 2024 025 [facility]acy #[id number], [address] [place], [address], 12/14/2024 09:45:22 amlodipin e 5 mg tablet 2023 024 [facility], [place], [address], 05/26/2024 11:48:37 losartan 100 mg tablet 2023 024 [facility] [place], [address], 03/29/2024 11:42:36 Patient TargetsNo targets recorded. Patient Instructions Encounter Date Encounter Id Patient Instructions Last Modified By Organization Details Last Modified Time 07/09/2024 [id number] leg and ankle edema: care instructions Not available 07/09/2024 10:44:07 learning about type 2 diabetes Not available 07/09/2024 10:44:07 type 2 diabetes: care instructions Not available 07/09/2024 10:44:07 high blood pressure: care instructions Not available 07/09/2024 10:44:07 learning about high blood pressure Not available 07/09/2024 10:44:07 11/17/2024 [id number] leg and ankle edema: care instructions Not available 11/17/2024 09:34:24 Reason for Referral None Reported. Results Created Date Observation Date Name Description Value Unit Range Abnormal Flag Note LastModifiedBy Organization Detail LastModifiedTime 06/16/20 24 06/15/2024 leigh ann SLOAN, digit al, bilat eral No observ ation record ed. [email or web address] [address], [address], 06/16/2024 09:33:11 10/15/20 24 10/14/2024 US, robinsonle x, arter ial, lower extre mity No observ ation record ed. [email or web address] [facility] [address] [address], [place], [address], 10/15/2024 08:57:36 11/01/19 25 11/01/2024 XR, chest , 2 view No observ ation record ed. [facility] [address], [place], [address], 11/01/2024 22:34:52 Result Notes None recorded. Problems Name Problem SNOMED Code Status Onset Date Resolution Date Notes Provider Name and Address Organization Details Recorded Time Non-alcoh olic fatty liver disease without non-alcoh olic steatohep atitis 232974430 Active 2018 Not Available [facility] 1 13:47:44 Edema of lower extremity 833487154 Active 2019 Not Available [facility] 1 13:47:44 Pain of left knee region 638661607954 109 Active 2021 Neal Woodruff DO [address] [place] [address], [phone], [facility] 2 10:26:57 Tear of medial meniscus of knee 785703666 Active 2021 Neal Woodruff DO [address] [place] [address], [phone], [facility] 2 10:29:31 Obstructi ve sleep apnea syndrome 13172814 Active 2021 Neal Woodruff DO [address] [place] [address], [address], [facility] 2 10:34:54 Instabili ty of joint of left knee 756903646557 9106 Active 2021 Neal Woodruff DO [address] [place] [address], [address], [facility] 2 15:35:15 Pain of left knee joint 387714935751 107 Active 2021 YRIS MITTAL [address] [place] [address], [address], [facility] 2 16:24:02 Metatarsa lgia 05583010 Active 2022 Neal Woodruff DO [address] [place] [address], [address], [facility] 3 20:39:01 Onychomyc osis of toenails 352924168 Active 2022 Neal Woodruff, DO [address] [place] [address], [address], [facility] 3 13:41:43 Body mass index 30+ - obesity 941450926 Active 2017 Not Available [facility] 1 13:47:44 Tear of medial meniscus of knee 186938596 Active 2023 Neal Woodruff, DO [address] [place] [address], [address], [facility] 4 12:20:14 Varicose veins of lower extremity 36629972 Active 2023 Neal Woodruff DO [address] [place] [address], [address], [facility] 4 12:26:16 Cough 12636907 Active 2023 Neal Woodruff DO [address] [place] [address], [address], [facility] 4 10:01:35 Type 2 diabetes mellitus 85035263 Active 2017 Not Available [facility] 1 13:47:44 Essential hypertens ion 83348614 Active 2017 Not Available [facility] 1 13:47:44 Hyperchol esterolem ia 14902842 Active 2017 Not Available [facility] 1 13:47:44 Reactive airway disease 104040389669 Active 2024 Neal Woodruff DO [address] [place] [address], [address], [facility] 5 09:29:51 Primary herpes simplex infection of lips 731217232 Active 2024 Neal Woodruff DO [address] [place] [address], [address], [facility] 5 09:33:24 Acute cough Active 2024 YRIS MITTAL [address] [place], [address], [facility] 15:11:22 Upper respirato ry infection 91820021 Active 2024 YRIS MITTAL [address] [place], [address], [facility] 5 15:11:32 Problem Notes None recorded. Procedures Surgical History Date Name Laterality Status Provider Name and Address Organization Details Recorded Time 024 Corticosteroid Injection completed Neal Woodruff DO [address] [place] [address], [phone], [facility] 05/26/2024 11:43:09 023 Corticosteroid Injection completed Neal Woodruff DO [address] [place] [address], [address], [facility] 09/26/2023 14:50:42 023 Corticosteroid Injection completed Neal Woodruff DO [address] [place] [address], [address], [facility] 12/06/2022 13:20:07 016 Colonoscopy completed Carol Peñaloza [facility] 11/10/2019 09:33:48 Imaging Results Imaging Date Name Status LastModified by Organiz ation Details LastModified Time 06/15/2024 MAMMO, screening, digital, bilateral completed [email or web address] [address], [address], 06/16/2024 09:33:11 10/14/2024 US, duplex, arterial, lower extremity completed [email or web address] [facility] [address] [address], [place], [address], 10/15/2024 08:57:36 11/01/2024 XR, chest, 2 view completed [address], [address], 11/01/2024 22:34:52 Procedure Notes None recorded. Medical Equipment None Reported. Allergies Allergen ID Allergen Name Allergen Category Reaction Reaction Severity Criticality Documentation Date Start Date Code Code System Note Provider Name and Address Organization Details Recorded Time 107 Augmentin medicatio n rash Not available Not available 12/26/2017 22321 2 RxNorm Petra Bowsermona bruno [place] - [facility] 8 11:23:24 Medications Name Sig Start Date Stop Date Status Note LastModified by Organization Details LastModified Time Prescriptio n - Prior Authorizati on Request active Not Available Not Available N ot Available losartan 50 mg tablet TAKE 1 TABLET DAILY 05/26 completed Not Available Not Available Not Available metformin 500 mg tablet Take 1 tablet every day by oral route. 12/28 completed Not Available Not Available Not Available prednisone 10 mg tablet TAKE 5 TABS DAILY X2 DAYS, THEN 4 TABS X2 DAYS, THEN 3 TABS X2 DAYS, 2 TABS X2 DAYS, 1 TAB X2 DAYS 12/14 completed Not Available Not Available Not Available azithromyci n 250 mg tablet TAKE 2 TABLETS (500 MG) BY ORAL ROUTE ONCE DAILY FOR 1 DAY THEN 1 TABLET (250 MG) BY ORAL ROUTE ONCE DAILY FOR 4 DAYS 11/17 completed Not Available Not Available Not Available pravastatin 40 mg tablet TAKE 1 TABLET DAILY active Not Available Not Available No t Available benzonatate 200 mg capsule Take 1 capsule 3 times a day by oral route for 7 days. 11/17 completed Not Available Not Available Not Available hydrocodone 5 mg-acetamin ophen 325 mg tablet Take 1 tablet every 6 hours by oral route as needed for 7 days. 07/27 completed Not Available Not Available Not Available amlodipine 5 mg tablet TAKE 1 TABLET BY MOUTH AT 8 AM active Not Available Not Available No t Available valacyclovi r 500 mg tablet TAKE 1 TABLET BY MOUTH TWICE A DAY DIRECTED FOR 5 DAYS active Not Available Not Available No t Available prednisolon e acetate 1 % eye drops,suspe nsion INSTILL 1 DROP IN LEFT EYE FOUR TIMES A DAY FOR 3 DAYS, THEN TAPER 11/17 completed Not Available Not Available Not Available OneTouch Ultra Test strips test twice a day active Not Available Not Available No t Available amlodipine 10 mg tablet TAKE 1 TABLET DAILY 06/07 completed Not Available Not Available Not Available doxycycline monohydrate 100 mg capsule 11/17 completed Not Available Not Available Not Available cephalexin 500 mg capsule TAKE 1 CAPSULE BY MOUTH THREE TIMES DAILY WITH FOOD AND A GLASS OF WATER FOR 5 DAYS 01/07 completed Not Available Not Available Not Available losartan 25 mg tablet 07/27 completed Not Available Not Available Not Available codeine 10 mg-guaifene sin 100 mg/5 mL oral liquid Take 10 mL every 4 hours by oral route as needed for 7 days. 11/17 completed Not Available Not Available Not Available hydrochloro thiazide 25 mg tablet Take 1 tablet three times per week 11/17 completed Not Available Not Available Not Available Transderm-S copyist 1 mg over 3 days transdermal patch Apply 1 patch every 72 hours by transderm al route. 2017 active Not Available Not Available Not Avai lable methylpredn isolone 4 mg tablets in a dose pack Take 1 dose pk by oral route as directed for 6 days. 11/17 completed Not Available Not Available Not Available albuterol sulfate HFA 90 mcg/actuati on aerosol inhaler INHALE 2 PUFFS INTO THE LUNGS EVERY 4 HOURS NEEDED active Not Available Not Available No t Available losartan 100 mg tablet TAKE 1 TABLET DAILY active Not Available Not Available No t Available metformin ER 500 mg tablet,exte nded release 24 hr TAKE 3 TABLETS ONCE DAILY 11/20 completed Not Available Not Available Not Available naproxen 500 mg tablet TAKE 1 TABLET TWICE A DAY NEEDED WITH FOOD active Not Available Not Available No t Available oxycodone 5 mg tablet Take 1 tablet every 4 hours by oral route for 4 days. 05/29 completed Not Available Not Available Not Available neomycin 3.5 mg/g-polymy domitila B 10,000 unit/g-dexa meth 0.1 % eye oint APPLY TO BOTH EYELIDS TWICE A DAY FOR 7 DAYS 01/17 completed Not Available Not Available Not Available Traumeel applied to knee tid 02/10 completed Not Available Not Available Not Available Motrin TID 07/27 completed Not Available Not Available Not Available naproxen prn 04/23 completed Not Available Not Available Not Available Tylenol Arthritis Pain 2 tablets prn 07/27 completed Not Available Not Available Not Available Fantasy ShopperTouch Ultra2 Meter kit 01/25 completed Not Available Not Available Not Available metformin ER 500 mg 24 hr tablet,exte nded release (gastric retention) Take 1 tablet twice a day by oral route. 10/08 completed Not Available Not Available Not Available Fluarix Quad 2460-0735 (PF) 60 mcg (15 mcg x 4)/0.5 mL IM syringe 01/27 completed Not Available Not Available Not Available Shingrix (PF) 50 mcg/0.5 mL intramuscul ar suspension, kit active Not Available Not Available Not Available Bydureon BCise 2 mg/0.85 mL subcutaneou s auto-inject or Inject 2 mg every week by subcutane ous route as directed for 90 days. 08/29 completed Not Available Not Available Not Available Ozempic 0.25 mg or 0.5 mg (2 mg/1.5 mL) subcutaneou s pen injector Inject 0.5 mg every week by subcutane ous route for 90 days. 2022 active Not Available Not Available Not Avai lable OneTouch Ultra Blue Test Strip TEST 1 TIME QD 01/07 completed Not Available Not Available Not Available Fluzone High-Dose (PF) 180 mcg/0.5 mL intramuscul ar syringe active Not Available Not Available N ot Available OneTouch Delica Plus Lancet 33 gauge Take 1 each every day by miscell. route for 50 days. active Not Available Not Available No t Available Fluad 65yr up(PF)45 mcg(15 mcgx3)/0.5 mL intramuscul ar syringe active Not Available Not Available N ot Available Fluad Quad (6 5yr up)(PF) 60 mcg (15 mcg x 4)/0.5mL IM syringe ADM 0.5ML IM UTD 01/17 completed Not Available Not Available Not Available BinaxNOW COVID-19 Ag Self Test kit TEST DIRECTED TODAY 08/09 completed Not Available Not Available Not Available Ozempic 0.25 mg or 0.5 mg (2 mg/3 mL) subcutaneou s pen injector INJECT 0.25MG SUBCUTANE OUSLY WEEKLY (EVERY 7 DAYS). 2024 active Not Available Not Available Not Avai lable Vitals Date Recorded Body height Body mass index (BMI) Body weight Heart rate Oxygen saturation Oxygen saturation in Arterial blood by Pulse oximetry Systolic blood pressure Diastolic blood pressure Provider Name and Address Organization Details Last Updated DateTime 4 163.83 cm 33.5 kg/m2 37186.3 7 g 84 /min 99 % 99 % 138 mm[Hg] 78 mm[Hg] Precious Higgins [facility] 4 11:24:42 Date Recorded Body height Body mass index (BMI) Body weight Heart rate Oxygen saturation Oxygen saturation in Arterial blood by Pulse oximetry Systolic blood pressure Diastolic blood pressure Provider Name and Address Organization Details Last Updated DateTime 4 163.83 cm 33.3 kg/m2 37460.7 g 76 /min 98 % 98 % 150 mm[Hg] 78 mm[Hg] Stefany Cline [facility] 4 10:12:54 Date Recorded Body height Body mass index (BMI) Body weight Heart rate Oxygen saturation Oxygen saturation in Arterial blood by Pulse oximetry Systolic blood pressure Diastolic blood pressure Provider Name and Address Organization Details Last Updated DateTime 5 163.83 cm 32.1 kg/m2 23198.5 5 g 98 /min 97 % 97 % 154 mm[Hg] 80 mm[Hg] Stefany Cline [facility] 5 09:21:21 Date Recorded Body height Provider Name an d Address Organization Details Last Updated DateTime 12/14/2024 163.83 cm Precious Higgins [facility] 12/14/2024 09:44:45 Social History Question Answer Notes LastModified by Organizat ion Details LastModified Time Tobacco Smoking Status Never Smoker Petra bruno [facility] 01/27/2018 09:54:28 What Was The Date Of Your Most Recent Tobacco Screening? 11/17/2024 [email or web address] Information not available 11/17/2024 Do You Or Have You Ever Used Any Other Forms Of Tobacco Or Nicotine? No [email or web address] Information not available 07/09/2024 Sex: Unknown Functional Status None recorded. Mental Status None recorded. Family History Nothing Reported. Medical History Condition Response Coronary Artery Disease N Gout N Other N Kidney Stones N Blood Diseases N Blood Transfusion N Breast Cancer N Lung Disease N Depression N COPD N Defects or Inherited Disease N Anxiety Disorder N Muscle, Joint, or Bone Problems N Obesity N Vision or Eye Problems N Arthritis N Infertility N Polyps N Mental Disorder N Cancer N Stroke N Varicosities N Endometriosis N Bladder or Kidney Problems N High Cholesterol N Liver Disease N Fibromyalgia N Headaches N Kidney Disease N Allergies/Hayfever N Heart Problems N Hospitalizations N Thyroid Problems N GI Problems N Eating Disorder N Skin Problems N Anemia N MRSA exposure N Constipation N Mental Illness N Diabetes N Ovarian Cancer N Seizures/Epilepsy N Tuberculosis N Congestive Heart Failure (CHF) N Eczema N Abuse/Domestic Violence N Diverticulitis N Asthma N Reflux/GERD N Hepatitis N Heart Disease N Pulmonary Embolism N Hypertension N Chicken Pox N Autism Spectrum Disorder (ASD) N Osteoporosis N Gynecological HistoryNo gynecological history recorded. Obstetrics History GPAL:G 0 P 0 0 0 0 Immunizations Vaccine Type Date Status Note Provider Nam e and Address Organization Details Recorded Time Influenza, split virus, quadrivalent, preservative 1 completed Pooja bruno [facility] 08/09/2022 09:09:14 COVID-19, mRNA, LNP-S, PF, 30 mcg/0.3 mL dose 1 [facility] 09:09:14 Influenza, split virus, quadrivalent, preservative 2 [facility] 09:15:53 Influenza, split virus, quadrivalent, preservative 8 [facility] 09:09:14 zoster live 2 completed Carol bruno [facility] 09/28/2018 10:02:02 pneumococcal polysaccharide PPV23 0 [facility] 09:09:14 Pneumococcal conjugate PCV 13 5 completed Pooja Martinez [facility] 08/09/2022 09:09:14 Td (adult) 2 completed Carol bruno [facility] 09/28/2018 10:02:41 zoster live 9 completed Carol bruno [facility] 05/31/2019 13:27:42 Influenza, split virus, quadrivalent, preservative 9 completed Pooja Ottcarelllo bruno [facility] 08/09/2022 09:09:14 Influenza, split virus, quadrivalent, preservative 0 completed Pooja Ottcarelllo [facility] [place] [facility] 08/09/2022 09:09:14 COVID-19, mRNA, LNP-S, PF, 30 mcg/0.3 mL dose 1 completed Pooja bruno [facility] 08/09/2022 09:09:14 COVID-19, mRNA, LNP-S, PF, 30 mcg/0.3 mL dose 1 completed Pooja Martinez [facility] [facility] 08/09/2022 09:09:14 Past Encounters Encounter ID Performer Location Encounter Start Date Encounter Closed Date Diagnosis/Indication Diagnosis SNOMED-CT Code Diagnosis ICD10 Code Diagnosis Note [id number] Nell Mooney NP, S [facility] [address] [facility],[place] [address] 01/27/2018 09:20:23 01/27/2018 11:12:18 Hypertensive disorder 36433660 I10 stable Hyperlipidemia 43090870 E78.5 recheck in 4 months, cont. pravastati n, ldl 88 Knee pain 52401724 M25.5 62 Body mass index 30+ - obesity 285590232 Z68.39 continue walking and healthy diet Disorder d ue to type 2 diabetes mellitus 405885544 E11.8 discontinu e metformin ( A1C 5.3) [id number] Neal Woodruff DO [facility] [address] [facility] [address] 06/05/2018 09:30:02 06/05/2018 10:20:53 Essential hypertension 74067404 I10 will decrease dose of losartan to 25 mg Type 2 peter betes mellitus 36246204 E11.9 will cont off any dm meds a1c is 5.7 Hypercholesterolemia 136 53598 E78.00 highly recc to cont statin med [id number] Neal Woodruff [facility] [address] [facility],[place] [address] 06/23/2018 14:38:36 06/23/2018 15:40:35 Essential hypertension 31662632 I10 will decrease dose of losartan to 25 mg [id number] Neal Woodruff [facility] [address] [facility] [place] [address] 09/28/2018 09:41:01 09/28/2018 14:43:48 Type 2 diabetes mellitus 35197433 E11.9 will cont off any dm meds a1c is 6.5 but pt not good over summer will follow Essential hypertension 62170318 I10 dose of losartan to 25 mg is well tolerated Hepatitis C screening 41 3472660 Z11.59 [id number] Neal Woodruff [facility] Internal Medicine [address] [facility],[employer] [place] [address] 12/16/2018 15:38:52 12/16/2018 16:45:57 Atypical chest pain 735507573 R07.89 has undergone major cardiac workup and has noted no evid of cardiac etiology pain is now gone Essential hypertension 60891876 I10 has noted elevated bp lately will increase amlodipine to 10 Type 2 peter betes mellitus 43840183 E11.9 restarted metformin on own will need to wait until we have more data will follow [id number] Neal Woodruff [facility] Internal Medicine [address] [facility],[place] [address] 01/25/2019 10:06:09 01/25/2019 12:11:50 Essential hypertension 64601185 I10 bp is good no major issues Type 2 peter betes mellitus 89522298 E11.9 taking metformin and is still running higher at 7.6 will need to lose wgt g Liver enzy mes level above reference range 614187253 R74.8 note father had hemochroma tosis Obesity 177118927 E66.9 [id number] Neal Woodruff [facility] Internal Medicine [address] [facility] [address],[place] [address] 05/31/2019 13:18:41 05/31/2019 14:03:17 Type 2 diabetes mellitus 42586276 E11.9 taking metformin and is still running higher at 7.6 will need to lose wgt denies any cp sob Essential hypertension 32642069 I10 bp is good no major issues will cont current meds Obstructiv e sleep apnea syndrome 52718055 G47.33 will try another test this time at home [id number] January SEVERIANO Flores [facility] Internal Medicine [address] [facility] [address],[place] [address] 07/02/2019 10:50:11 07/02/2019 11:33:33 Type 2 diabetes mellitus 32612529 E11.8 Essential hypertension 39401094 I10 high today Pain in right knee 57772 97942 75988 M25.561 meniscus tear vs mcl sprain ice/rest/i buprofen will consult ortho if conservati ve tx fails consider pt continue non weight bearing Sprain of medial collateral ligament of knee 66906437 S83.411A avoid weight bearing conservati ve treatment again ortho if no improvemen t consider pt as well Derangemen t of medial meniscus 895144799 M23.309 [id number] Neal Woodruff [facility] Internal Medicine [address] [facility], [place] [address] 07/27/2019 14:45:17 07/27/2019 15:36:55 Obstructive sleep apnea syndrome 22928584 G47.33 will try another test this time at home nad it revealed MIHIR and she is willing to have a cpap trial and we understand that she had tried in the near past for 6 months and just did not tolerate [id number] Neal Woodruff [facility] Internal Medicine [address] [facility], [place] [address] 09/10/2019 09:04:16 09/10/2019 09:44:34 Essential hypertension 33677422 I10 bp is good no major issues will cont current meds cont lossara Type 2 peter betes mellitus 13175030 E11.9 very high a1c now unusual for her taking metformin will need to continue to lose wgt denies any cp sob but will stop the hctz as i doubt this is helpful cont harsha also will order nutritioni st consult [id number] Neal Woodruff [facility] Internal Medicine [address] [facility], [place] [address] 11/10/2019 09:19:50 11/10/2019 11:46:07 Essential hypertension 54437985 I10 bp is good no major issues will cont current meds cont harsha Type 2 peter betes mellitus 92068323 E11.[address] centeno and had metform increased will need to continue to lose wgt denies any cp sob but will restart the hctz as she has gained back a lot of water weight also will order nutritioni st consult Hepatitis C screening 41 4037326 Z11.59 Active or passive immunization 508595526 Z23 Edema of l ower extremity 123960767 R60.0 will try taking the hctz on a W F trial Hemochromatosis 63130495 6 E83.119 will get lab after she donates [id number] Neal Woodruff [facility] Internal Medicine [address] [facility], [employer] [place] [address] 02/11/2020 09:48:50 02/11/2020 11:28:45 Adult health examination 059444385 Z00.00 doing well reviewed in detail and has dropped the a1c from 8 to 6.1 cont to walk and eat correctly Screening for cardiovascular system disease 565447268 Z13.6 will need to rechk lipid at next blood draw Screening for osteoporosis 269438353 Z13.820 will give order sheet so that she can get at same time as mammogram [id number] Neal Woodruff [facility] Internal Medicine [address] [facility] [address] 05/02/2020 14:53:20 05/02/2020 15:41:40 Pre-surgery evaluation 255232856 Z01.818 according to the 2017 ACC cardiac risk stratific (revised) this patient is considered a low risk for the proposed surgery and is CLEARED. pt understand s to take all of her usual scheduled medication on the day of surgery., Edema of l ower extremity 463587983 R60.0 will try taking the hctz on a M W F trial but can use daily if needed. Type 2 peter betes mellitus 87644126 E11.[address] centeno and had metform increased will need to continue to lose wgt denies any cp sob but will restart the hctz as she has gained back a lot of water weight a1c is pending also will order nutritioni st consult Essential hypertension 00483379 I10 bp is good no major issues will cont current meds cont losart [id number] Neal Woodruff [facility] Internal Medicine [address] [facility] [address],[place] [address] 05/29/2020 10:53:50 05/29/2020 11:35:49 Hypercholesterolemia 87611729 E78.00 highly recc to cont statin med Type 2 peter betes mellitus 44281449 E11.9 doing fantastic we will try lowering the metformin to 1 bid a1c rechk in 3 mo Essential hypertension 50571941 I10 bp is good no major issues will cont current meds cont losart [id number] Neal Woodruff [facility] Internal Medicine [address] [facility],[place] [address] 10/10/2020 08:42:12 10/10/2020 11:34:20 Essential hypertension 02949993 I10 bp is good no major issues will cont current meds cont losart Hypercholesterolemia 136 77415 E78.00 highly recc to cont statin med Type 2 peter betes mellitus 15913596 E11.9 doing fantastic we will try lowering the metformin to 1 bid a1c rechk in 3 mo 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 435672989 K76.0 will be checking lab next december Neal Woodruff [facility] Internal Medicine [address] [facility] [address],[place] [address] 01/17/2021 09:03:47 01/17/2021 10:31:19 Essential hypertension 00080453 I10 bp is good no major issues will cont current meds cont losart Type 2 peter betes mellitus 25721632 E11.9 doing fantastic we will try lowering the metformin to 1 bid a1c rechk in 3 mo a1c is 6.5 doing well dm foot is exceelt Hypercholesterolemia 136 86176 E78.00 outstandin g numbers [id number] Neal Woodruff [facility] Internal Medicine [address] [facility] [address],[place] [address] 04/23/2021 10:02:18 04/23/2021 11:06:49 Type 2 diabetes mellitus 14464215 E11.9 doing good overall the metformin is 1 bid a1c rechk in 3 mo a1c is 7.0 and was 6.5 we will rechk early fall warned to be more dm foot is excellentn o evidince of neuropathy Essential hypertension 52704605 I10 bp is good no major issues will cont current meds cont anna will rechk in 1-2 mo Hypercholesterolemia 136 37076 E78.00 [facility] [id number] Neal Woodruff DO [facility] Internal Medicine [address] [facility],[employer] [place] [address] 06/11/2021 10:05:56 06/11/2021 11:50:41 Essential hypertension 35523281 I10 bp is good no major issues will cont current meds cont anna will rechk in 1-2 mo Pain in left knee 943496 4941 62533 M25.562 will treat coinserv and we will have her call if this is getting worse [id number] Neal Woodruff DO 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 [id number] Neal Woodruff DO [facility] Internal Medicine [address] [facility],[employer] [place] [place] [address] 05/03/2022 09:52:23 05/03/2022 10:56:02 Hypercholesterolemia 99344576 E78.00 outstandin numbers Type 2 peter betes mellitus 18656203 E11.9 he is back up on her exercise and the a1c is now at 7. and she cont to do [id number] rechk in 3 mo no evidence of neuropathy Essential hypertension 11840162 I10 bp is good no major issues will cont current meds cont anna will rechk in 1-2 mo Active or passive immunization 445912939 Z23 patient advised she is due for tdap Pain of le ft knee region 9657335445 57738 M25.562 seems to be a poss meniscal tear of left knee Tear of me dial meniscus of knee 560262027 S83.242D Obstructiv e sleep apnea syndrome 01996839 G47.33 NOT TOLERATING THE CPAP THERE IS A PROBLEM WITH HER MACHINE [id number] Neal Woodruff DO [facility] Internal Medicine [address] [facility],[place] [address] 08/09/2022 09:08:21 08/09/2022 09:48:45 Type 2 diabetes mellitus 84384175 E11.9 he is back up on her exercise and the a1c is now at 7.6 and she cont to do well but could be betterpt is back at the gyma1c rechk in 3 morecent eye exam was ok recent exam was goodno evidence of neuropathy Essential hypertension 85459328 I10 bp is good no major issues will cont current meds cont losartbp has been good at 130/78 Obstructiv e sleep apnea syndrome 37879632 G47.33 NOT TOLERATING THE CPAP THERE IS A PROBLEM WITH HER MACHINE and she has been sleeping well [id number] Neal Woodruff [facility] Internal Medicine [address] [facility],[place] [address] 11/20/2022 09:05:15 11/20/2022 10:31:05 Type 2 diabetes mellitus 24737765 E11.9 he is back up on her exercise and the a1c is now at 7.6 and she cont to do well but could be betterpt is back at the gyma1c rechk in 3 morecent eye exam was ok recent exam was goodno evidence of neuropathy Essential hypertension 56770303 I10 bp is good no major issues will cont current meds cont losartbp has been good at 130/78 Advance care planning 71 1449760 Z71.89 utd Active or passive immunization 825917836 Z23 patient advised she is due for tdap Instabilit y of joint of left knee 0870294945 535744 M25.362 with positive regina test and failed Phys therapy (see note) mri shows torn med meniscuswi [place] [id number] [facility] [address] [facility] [address] 12/06/2022 10:04:57 12/06/2022 13:55:03 Instability of joint of left knee 6086521740 904907 M25.362 with positive regina test and failed Phys therapy (see note) mri shows torn med meniscuswi ll offer a arian inj [id number] [facility] [address] [facility],[employer] [place] [facility] [place] 7 01/29/2023 11:36:21 01/29/2023 13:48:15 Screening mammography 93566824 Z12.31 Type 2 peter betes mellitus 85643141 E11.9 he is back up on her exercise and the a1c is now at 7.6 and she cont to do well but could be betterpt is back at the gyma1c rechk in 3 morecent eye exam was ok recent exam was goodno evidence of neuropathy Edema of l ower extremity 942498442 R60.0 will try taking the hctz on a trial but can use daily if needed. Essential hypertension 53539121 I10 bp is good no major issues will cont current meds cont losartbp has been good at 130/78 [id number] Neal Woodruff DO [facility] Internal Medicine [address] [facility] [address],[place] [address] 05/12/2023 14:04:06 05/12/2023 15:31:44 Hypercholesterolemia 66577446 E78.00 outstandin g numbers Type 2 peter betes mellitus 22883749 E11.9 he is back up on her exercise and the a1c is 6.2 now WAS at 7.6 and she cont to do well but could be betterpt is back at the gyma1c rechk in 3 morecent eye exam was ok recent exam was goodno evidence of neuropathy [id number] Neal Woodruff DO [facility] Internal Medicine [address] [facility],[employer] [place] [place] 7 08/29/2023 13:23:46 08/29/2023 14:02:18 Essential hypertension 86733317 I10 bp is good no major issues will cont current meds cont losartbp has been good at 130/78 Hypercholesterolemia 136 77271 E78.00 outstandin g numbers Type 2 peter betes mellitus 64857747 E11.9 he is back up on her exercise and the a1c is 6.1 was 6.2 now WAS at 7.6 and she cont to do well with ozempicpt is back at the gyma1c rechk in 3 morecent eye exam was ok recent exam was goodno evidence of neuropathy Onychomyco sis of toenails 676685236 B35.1 want so podiatry Pain of le ft knee region 9518212957 39425 M25.562 seems to be a poss meniscal tear of left kneeshe has been suffering wieth this lately so we will get a arian inj [id number] Neal Woodruff DO [facility] Internal Medicine [address] [facility] [address],[place] [address] 09/26/2023 14:10:16 09/29/2023 10:06:08 Pain of left knee joint 2086486582 42665 M25.562 arian well kamron [id number] Neal Woodruff DO [facility] Internal Medicine [address] [facility],[address] [facility] [place] [address] 01/09/2024 08:14:44 01/09/2024 15:52:24 Type 2 diabetes mellitus 41077021 E11.9 he is back up on her exercise and the a1c is 6.5 was 6.1 was 6.2 now WAS at 7.6 and she cont to do well with ozempicpt is back at the gym needs an occ naproxena1 c rechk in 3 morecent eye exam was ok recent exam was goodno evidence of neuropathy Hypercholesterolemia 136 89521 E78.00 outstandin g numbers Tear of me dial meniscus of knee 291400184 S83.242D uses naproxen prn but sparingly Essential hypertension 49315484 I10 bp is good no major issues will cont current meds cont losart but we will stop the hctz 1 week before next appt and see if she really needs itbp has been good at 130/78 Varicose v eins of lower extremity 47559761 I83.93 relates has been seen by vascular and is to be doing [id number] Neal Woodruff DO [facility] Internal Medicine [address] [facility],[place] [address] 03/29/2024 11:15:09 03/29/2024 13:46:52 Depression screening 252776522 Z13.31 PHQ9 NEGATIVE Essential hypertension 36862849 I10 bp is good no major issuewill stop the hctznow we will increase losartan to 100mg but derease the amlodipine to 5mg Type 2 peter betes mellitus 22579248 E11.9 he is back up on her exercise and the a1c isdoing great at 5.9and she cont to do well with ozempicpt is back at the gym needs an occ naproxena1 c rechk in 3 morecent eye exam was ok recent exam was goodno evidence of neuropathy Edema of l ower extremity 586894727 R60.0 will try taking the hctz on a trial but can use daily if needed. will be having varicose vein surgery in [id number] Neal Woodruff [facility] Internal Medicine [address] [facility],[place] [address] 05/26/2024 11:16:58 05/28/2024 09:52:42 Tear of medial meniscus of knee 957990259 S83.242D uses naproxen prn but sparinglyt olerated arian inj [id number] Neal CanalesMily Woodruff [facility] Internal Medicine [address] [facility],[place] [address] 07/09/2024 09:57:02 07/09/2024 10:53:03 Essential hypertension 78605788 I10 bp is good no major issuewill change the hctz to qodnow we will increase losartan to 100mg but decrease the amlodipine to 5mg Edema of l ower extremity 275825792 R60.0 will try taking the hctz on a trial but can use daily if needed. will be having varicose vein surgery in jul Type 2 peter betes mellitus 75756812 E11.9 he is back up on her exercise and the a1c isdoing great at 5.7!!!! 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 695933357 K76.0 will be checking lab next fbw but has been stable and she is losing wgt doing great overall [id number] Neal Lena Woodruff [facility] Internal Medicine [address] [facility],[place] [address] 11/17/2024 09:10:30 11/17/2024 09:56:02 Essential hypertension 08402008 I10 bp is good no major issuewill change the hctz to qodnow we will increase losartan to 100mg but decrease the amlodipine to 5mg Type 2 peter betes mellitus 00996026 E11.9 he is back up on her exercise and the a1c isdoing great at 5.7!!!!pedro pite her recent illness was at 5.9and she cont to do well with ozempicpt is back at the gym finally but still needs an occ naproxena1 c rechk in 3 morecent eye exam was ok recent exam was goodno evidence of neuropathy Reactive a irway disease 0266362867 06 J45.909 finally having a good day Edema of annie schultz extremity 195867285 R60.0 had stopped hctz for now as she was dehydrated told her to hold off for now Primary he rpes simplex infection of lips 614785139 B00.1 [id number] YRIS MITTAL [facility] Internal Medicine [address] [facility],[place] [address] 12/14/2024 09:40:52 12/14/2024 15:14:20 Acute cough 4759573557 84876163 R05.1 improving Upper resp iratory infection 47988941 J00 improving Health Concerns Section Related Observation LastModified by Organization Detai ls LastModified Time None Recorded Concern Status LastModified by Organization Details LastModified Time None Recorded Advance Directives Directive None Recorded Payers Encounter Date Sequence Insurance Name Policy Number Policy Cordero Covered Member ID Cordero Member ID Guarantor Name 03/29/2024 1 [employer]-ID: SECURE BLUE (MEDICARE REPLACEMENT PPO) [id number] Malia Miller [id number] Malia Miller 05/26/2024 1 [employer]-ID: SECURE BLUE (MEDICARE REPLACEMENT PPO) [id number] Malia Miller [id number] Malia Miller 07/09/2024 1 [employer]-ID: SECURE BLUE (MEDICARE REPLACEMENT PPO) [id number] Malia Miller [id number] Malia Miller 11/17/2024 1 [employer]-ID: SECURE BLUE (MEDICARE REPLACEMENT PPO) [id number] Malia Miller [id number] Malia Miller 12/14/2024 1 [employer]-ID: SECURE BLUE (MEDICARE REPLACEMENT PPO) [id number] Malia Miller [id number] Malia Miller Notes Date Note Type Note Provider Name a nd Address Organization Details Recorded Time 03/29/2024 text/html here for rechk a nd is doing great knee is good since she is very [id number] is 5.9 relates at times she skips a meal here and there and trying to stay on low carbgoes to gym every week and golfing daily Neal Woodruff DO [address] [place], [address], [facility] Internal Medicine 03/29/2024 11:43:19 05/26/2024 text/html here for declan willis her left knee has been doing ok until a week ago and relates that it has kept her up at night Neal Woodruff DO [address] [place], [address], [facility] Internal Medicine 05/26/2024 11:49:12 07/09/2024 text/html here for declan canales nd is doing greatstates that the ozemp is working well and her diet is erfeakkqlg9l is 5.7 Neal Woodruff DO [address] [place], [address], [facility] 07/09/2024 10:51:14 11/17/2024 text/html feels much caridad r and is doing ok overallreltes breathing is better and her cough is no essentially gonenow only on low dose predrelates feels that she is finally on mendhad lost 15 lbs during illnessnow eating patricia and more energy Neal Woodruff DO [address] [place], [address], [facility] Internal Medicine 11/17/2024 09:39:01 12/14/2024 text/html c/o cough The patient is participating in this appointment via telemedicine communication with a phone call/video calling service (Doxy)The patient consents to use of these platforms in place of an in-person appointment due to either sick symptoms the patient is presenting with or current office closure due to COVID exposure in order to keep our office staff and patients safe the patient has been having issues with an on and off coughthe patient reports that she ended up clearing it with a pred taper and her last appt on 11/17 her lungs were clear on exam the patient developed new cough, productive now, with low grade fever, nasal congestion, mild wheezingthe patient has some fatigue as well probably from the ongoing lung issuesis improving, the cough is lessening overallless of a cough, sleeping better will have her continue mucinex and monitor progress, will call if symptoms do not elslie or the worsen or fever develops YRIS MITTAL [address] [facility], [place], [address], [place] [facility] 12/14/2024 15:12:15 OBGyn Episode No OBEpisode recorded.
[2025-02-16 13:36] LABS: Estimated Average Glucose 126 mg/dL; Hemoglobin A1C 153.6276 umol/L; Total Hemoglobin (HGBA1C) 3639.1079 umol/L
[2025-02-16 13:52] LABS: Alanine Aminotransferase 18 U/L (0-31); Albumin Level 3.7 g/dL (3.5-5.0); Alkaline Phosphatase 66 U/L (39-117); Anion Gap 12 (12-20); Aspartate Amino Transferase 24 U/L (5-31); Bilirubin Total 0.4 mg/dL (0.0-1.0); Blood Urea Nitrogen 20 mg/dL (9-16); Calcium 9.5 mg/dL (8.4-10.2); Carbon Dioxide 25 mmol/L (22-29); Chloride 105 mmol/L (96-108); Estimated Glomerular Filt Rate > 60; Glucose Random 128 mg/dL (60-115); Potassium 3.6 mmol/L (3.3-5.1); Sodium 138 mmol/L (135-145); Total Protein 8.3 g/dL (6.5-8.0)
== END 2025-02-16 09:03 | disposition home or self-care (01) ==
LOC: HO.MANLDS 09:02
PROVIDERS: Visit Provider Internal Medicine
DX: I10 Essential (primary) hypertension (principal); E11.9 Type 2 diabetes mellitus without complications
CPT/HCPCS: 36415; 80053; 83036

== ENCOUNTER 2025-07-15 07:54 | Outpatient (REF) | payer MEDICARE, SELFPAY ==
--- OUTSIDE RECORDS SUMMARY | 2024-10-17 13:45 | XMS_ITS | Encounter Summary ---
Author Organization [facility] Address [facility] [address] [place] [address] Phone Care Team Providers Care Instrumental Music Teacher Name Role Phone Neal Villarreal Primary Care Provider [phone] Encounter Details Date Type Department Care Team (Late st Contact Info) Description 10/17/2024 12:45 PM EST Hospital Encounter [facility] [address] [place] [phone] Jessica Woodson, DYER ASSISTANT [address] [place] [address] [email or web address] Social History Tobacco Use Types Packs/Day Years [...] abnormality. IMPRESSION: Normal chest. us Jessica Woodson DYER ASSISTANT IMG XR CHEST Final R esult documented in this encounter Visit Diagnoses Not on filedocumented in this encounter Additional Health Concerns Infection Onset Date Last Indicated Resolved Time CoV-Risk 10/17/2024 10/17/2024 10/28/2024 1:21 AM EST documented as of this encounter Care Teams Instrumental Music Teacher Relationship Specialty Start Date End Date Neal Villarreal DO PCP - General Internal Medicine 11/19/17 06/20/25 documented as of this encounter Additional Source Comments The information contained in this document represents components of the legal health record. It is not the complete legal health record.[facility]
--- OUTSIDE RECORDS SUMMARY | 2025-07-15 07:57 | XMS_ITS | Encounter Summary ---
Author Organization [facility] Address [address] [place] [address] Phone Care Team Providers Care Train Gate Attendant Name Role Phone Mars Matias MD Unavailable [phone] Gwendolyn Vasquez CVICU RN Unavailable Re Suarez CVICU RN Unavailable [phone] Neal Villarreal DO Primary Care Provider [phone] Neal Villarreal DO Primary Care Provider [phone] Encounter Details Date Type Department Care Team (Late st Contact Info) Description 06/27/[address] [address] Social History Tobacco Use Types Packs/Day Years Used Date Smoking Tobacco: Never Smokeless Tobacco: Never Comments No Sex and Gender Information Value Date Recorded Sex Assigned at Not on file Legal Sex Female 11:15 AM EST Gender Identity Not on file Sexual Orientation Not on file documented as of this encounter Plan of Treatment Not on file documented as of this encounter Visit Diagnoses Not on filedocumented in this encounter Additional Health Concerns Infection Onset Date Last Indicated Resolved Time CoV-Risk 10/17/2024 10/17/2024 10/28/2024 1:21 AM EST documented as of this encounter Care Teams Train Gate Attendant Relationship Specialty Start Date End Date Neal Villarreal DO [address] [facility] [address] [place] [address] PCP - General Internal Medicine 11/19/17 06/20/25 Neal Villarreal DO [address] [place] [address] [place] [address] PCP - General Internal Medicine 06/21/25 Mars Matias MD [address] [place] [address] Historical LMR Provider 08/16/17 11/03/21 Gwendolyn Vasquez NP [address] [place] [address] [address] [place] [address] Historical LMR Provider 08/16/17 2 Re Suarez NP [address] [place] [address] 6 [place] [address] Historical LMR Provider 08/16/17 11/03/21 documented as of this encounter Additional Source Comments The information contained in this document represents components of the legal health record. It is not the complete legal health record.[facility]
--- OUTSIDE RECORDS SUMMARY | 2025-07-15 07:57 | XMS_ITS | Encounter Summary ---
Author Organization [facility] Address [address] [place] [address] Phone Care Team Providers Care Ms Sql Server Developer Name Role Phone Neal Villarreal DO Primary Care Provider [phone] Neal Villarreal DO Primary Care Provider Encounter Details Date Type Department Care Team (Late st Contact Info) Description 11/01/2024 Ancillary Orders [facility], [facility] [address] [place] [address] Neal Villarreal DO [address] [facility] [address] [place], [place] [id number] [email or web address] Acute cough (Primary Dx) Social History Tobacco Use Types Packs/Day Years [...] on file documented as of this encounter Results * XR CHEST PA AND LATERAL 2 VIEWS (11/01/2024 12:17 PM EST) Anatomical Region Laterality Modality Chest Computed Radiogr aphy 11/01/2024 2:41 PM EST Impressions 11/01/2024 2:43 PM EST Underaeration without consolidation. Narrative 11/01/2024 2:43 PM EST XR CHEST PA AND LATERAL 2 VIEWS Referring clinician's provided indication for this examination in [facility]: Cough. COMPARISON: Chest radiography dated October 17, 2024. FINDINGS: Devices/Tubes/Lines: None. Lungs: Underaeration. No consolidation, mass or nodule is present. Pleura: No pleural effusion or pneumothorax. Heart/Mediastinum: The heart size is normal. Mild calcification at the aortic knob. No acute hilar or mediastinal abnormality is identified. Bones/Soft Tissues: Vertebral endplate degenerative changes. No acute osseous or soft tissue findings. Mild spinal curvature convexity to the right. Procedure Note Tre Oliva MD - 11/01/2024 XR CHEST PA AND LATERAL 2 VIEWS Referring clinician's provided indication for this examination in Epic:Cough. COMPARISON: Chest radiography dated October 17, 2024. FINDINGS: Devices/Tubes/Lines: None. Lungs: Underaeration. No consolidation, mass or nodule is present. Pleura: No pleural effusion or pneumothorax. Heart/Mediastinum: The heart size is normal. Mild calcification at theaortic knob. No acute hilar or mediastinal abnormality is identified. Bones/Soft Tissues: Vertebral endplate degenerative changes. No acuteosseous or soft tissue findings. Mild spinal curvature convexity to theright. IMPRESSION: Underaeration without consolidation. us Neal Villarreal DO IMG XR CHEST Final Result documented in this encounter Visit Diagnoses Diagnosis Acute cough- Primary Acute cough documented in this encounter Care Teams Ms Sql Server Developer Relationship Specialty Start Date End Date Neal Villarreal A, DO PCP - General Internal Medicine 11/19/17 06/20/25 Neal Villarreal CatherineDO [address] [place] [address] PCP - General Internal Medicine 06/21/25 documented as of this encounter Additional Source Comments The information contained in this document represents components of the legal health record. It is not the complete legal health record.[facility]
--- OUTSIDE RECORDS SUMMARY | 2025-07-15 07:57 | XMS_ITS | Clinical Summary ---
Author Organization [facility] Address [address] [place] [address] Phone Care Team Providers Care Parks Recreation Coordinator Name Role Phone Neal Villarreal Primary Care Provider [phone] Allergies Active Allergy Reactions Criticality Noted Date Comments Amoxicillin-Pot Clavulanate Rash Low 10/11/20 19 Medications losartan (COZAAR) 50 MG tablet Take 1 tablet by mouth daily. Active amLODIPine (NORVASC) 10 MG tablet Take 10 mg by mouth daily. Active pravastatin (PRAVACHOL) 40 MG tablet Take 40 mg by mouth daily. Active hydroCHLOROthiaz tesha (HYDRODIURIL) 25 MG tablet daily. Takes every other day Active semaglutide (OZEMPIC) 0.25 mg or 0.5 mg(2 mg/1.5 mL) subcutaneous injection pen Ozempic 0.25 mg or 0.5 mg (2 mg/1.5 mL) subcutaneous pen injector Active Active Problems Problem Noted Date Diagnosed Date Hyperlipidemia 10/11/2019 Assessment & Plan (07/17/2020 9:47 AM EDT): Continues on moderate intensity statin therapy, tolerating this well Most recent lipid panel reviewed, LDL is at goal Assessment & Plan (01/10/2020 5:07 PM EDT): Continues on moderate intensity statin therapy, tolerating this well We do not have recent lipid panel on file for review, LDL goal is <100 Assessment & Plan (10/12/2019 11:04 AM EST): Continues on moderate intensity statin therapy, tolerating this well We do not have recent lipid panel on file for review Nonalcoholic fatty liver dis ease without nonalcoholic steatohepatitis (LAUREANO) 01/25/2019 Assessment & Plan (01/10/2020 5:06 PM EDT): The most effective treatment for fatty liver is weight loss, therapies which combine weight loss benefit with glucose control are likely to help reversal of fatty liver disease changes in particular SGLT2i therapy, we revisited this information again today and we will reconsider therapy with this if A1c remains suboptimal Assessment & Plan (10/12/2019 11:06 AM EST): We discussed fatty liver disease The most effective treatment for fatty liver is weight loss, therapies which combine weight loss benefit with glucose control are likely to help reversal of fatty liver disease changes in particular SGLT2i therapy, pioglitazone has also been shown to reverse fatty liver changes histologically however this may be associated with peripheral weight gain Obesity with body mass index 30 or greater 01/27 Assessment & Plan (07/17/2020 9:49 AM EDT): Malia has continued to lose weight, she has lost a total of 13lb since early 2019 We discussed the benefits of weight loss on insulin sensitivity and blood sugar control Continues with regular activity and healthy eating, we revisited intermittent fasting which Malia may be resuming Assessment & Plan (01/10/2020 5:12 PM EDT): BMI continues to be >30 but Malia has lost 6lb since starting Weight Watcher's, also doing intermittent fasting Encouraged to continue her efforts at healthy eating and staying consistently active Ongoing weight loss will improve insulin sensitivity and will also benefit fatty liver Assessment & Plan (10/12/2019 11:07 AM EST): BMI is >30 at today's visit There is history of recent weight loss per Malia Ongoing weight loss will improve insulin sensitivity and will also benefit fatty liver Type 2 diabetes mellitus without complications 0 12/26/2017 Assessment & Plan (07/17/2020 9:52 AM EDT): Continues on Metformin monotherapy, recently reduced dose to 1g daily and has noted no change in glucose patterns We discussed recent Metformin ER recall Continues to be active with walking daily and has returned to the gym as well, diet remains good Has continued to meet with our RD staff and will return to meet with her again in one year Malia and I discussed a return for a follow up with me on an as needed basis, she is encouraged to message me via the portal with any questions that arise Assessment & Plan (01/10/2020 5:11 PM EDT): Currently on Metformin monotherapy, as per our last visit Malia would prefer to keep med list modest and not add medications, she is reassured that she is doing well on Metformin currently She was able to increase Metformin dose to 1500mg daily which she is tolerating well, 2000mg daily caused diarrhea We revisited SGLT2i therapy, this may be an option if A1c remains suboptimal but Malia and I would prefer that continued attention to healthy lifestyle will optimize blood sugar control without needing addition of another agent Has met with our RD CDE and has follow up scheduled We will meet again in 6 months, encouraged to call with any questions or concerns in the meantime Assessment & Plan (10/12/2019 11:20 AM EST): Currently on Metformin monotherapy, Malia would prefer to keep med list modest and not add medications We discussed optimizing current Metformin therapy initially in timing (will change to evening dosing) and eventually in dosing (encouraged to increase to 1500mg once daily in one week then to 2000mg once daily if tolerating 1500mg well) We discussed SGLT2i therapy, mechanism of action and possible side effects, we discussed benefits such as weight loss and reversal of fatty liver changes along with blood sugar improvement Will return to meet with our RD CDE to discuss nutrition counseling, encouraged to stay active We will meet in 3 months, encouraged to call with any questions or concerns in the meantime Essential hypertension 12/26/2017 Assessment & Plan (07/17/2020 9:46 AM EDT): Blood pressure is under reasonable control at upper end of optimal range Currently on ARB, HCTZ and CCB Assessment & Plan (01/10/2020 5:07 PM EDT): Blood pressure is under good control Currently on ARB, HCTZ and CCB Addition of SGLT2i therapy may be beneficial in optimizing blood pressure and may result in discontinuation of CCB Assessment & Plan (10/12/2019 11:01 AM EST): Blood pressure is under reasonable control Currently on ARB and CCB Addition of SGLT2i therapy may be beneficial in optimizing blood pressure and may result in discontinuation of CCB Encounters Date Type Department Care Team Description 06/21/2025 5:23 PM EDT - 06/21/2025 11:59 PM EDT Hospital Encounter [facility] [address] [place] [address] Neal Villarreal DO Discharge Disposition: Home or Self Care 06/16/2025 Transcribe Orders [facility] [address] [place] [address] Neal Villarreal DO from Last 3 Months Immunizations Immunization Administration Dates Next Due INFLUENZA, SPLIT VIRUS, TRIV ALENT W/ PRESERVATIVE IM 07/25/2014 Influenza High-Dose Trivalen t Preservative Free IM 08/26/2016,09/05/2015 Influenza Quadrivalent w/ Preservative IM 2018,07/28/2018 Pneumococcal conjugate PCV13 07/04/2015,06/27/20 15 Pneumococcal polysaccharide PPSV23 12/25/2009 Td (adult) 5 Lf Tetanus Toxo id, PF, Adsorbed 11/27/2002 Td (adult), not adsorbed 04/27/2012 Tdap 05/18/2012 Zoster live 05/03/2019,08/28/2012,08/27/2012 Family History Medical History Relation Comments No Known Problems Daughter No Known Problems Father No Known Problems Maternal Grandfather No Known Problems Maternal Grandmother No Known Problems Mother No Known Problems Paternal Grandfather No Known Problems Paternal Grandmother No Known Problems Sister BRCA 1/2 Neg Hx Breast cancer Neg Hx Cancer Neg Hx Colon cancer Neg Hx Endometrial cancer Neg Hx Ovarian cancer Neg Hx Relation Status Comments Daughter Father Maternal Grandfather Maternal Grandmother Mother Paternal Grandfather Paternal Grandmother Sister Social History Tobacco Use Types Packs/Day Years Used Date Smoking Tobacco: Never Smokeless Tobacco: Never Tobacco Cessation:Counseling Given: Not Answered Alcohol Use Standard Drinks/Week Comments Not Currently [...] on file Sexual Orientation Not on file Last Filed Vital Signs Vital Sign Reading Time Taken Comments Blood Pressure 135/80 10/17/2024 12:31 PM EST Pulse 97 10/17/2024 12:31 PM EST Temperature 36.8 C (98.2 F) 10/17/2024 12:31 PM EST Respiratory Rate 17 10/17/2024 12:31 PM EST Oxygen Saturation 98% 10/17/2024 12:31 PM EST Inhaled Oxygen Concentration - - Weight 96.2 kg (212 lb) 07/17/2020 9:09 AM EDT Height 164.5 cm (5' 4.75 ) 01/10/2020 4:04 PM ED T Body Mass Index 35.55 01/10/2020 4:04 PM EDT Plan of Treatment Health Maintenance Due Date Last Done Comments CREATININE LEVEL 1949 POTASSIUM LEVEL 1949 DEPRESSION SCREENING 1961 HEPATITIS C SCREENING 1967 COLOGUARD 1994 FIT TEST 1994 FOBT 1994 SIGMOIDOSCOPY 1994 VIRTUAL COLONOSCOPY 1994 DIABETIC EYE EXAM 10/13/2018 ZOSTER VACCINES (3 of 3) 09/11/2019 019, 05/03/2019, 08/28/2012, Additional history exists COLONOSCOPY 03/19/2020 03/19/2010 COLORECTAL CANCER SCREENING 03/19/2020 PNEUMOCOCCAL VACCINES (50+ years) (3 of 3 - PCV20 or PCV21) 07/04/2020 07/04/2015, 06/27/2015, 12/25/2009 Adult Td,Tdap Booster 05/18/2022 05/18/2012 , 04/27/2012, 11/27/2002 BLOOD PRESSURE 04/17/2025 10/17/2024 HEMOGLOBIN A1C 05/09/2025 11/09/2024, 04/28, 11/10/2019, Additional history exists INFLUENZA VACCINE (#1) 2025 , 09/03/2023, 07/23/2022, Additional history exists COVID-19 VACCINE ( season) 2025 07/13/2024, 09/03/2023, 07/09/2022, Additional history exists OSTEOPOROSIS SCREENING INITIAL (ONE-TIME) Completed 07/27/2020 RSV VACCINE Completed 08/05/2024 SMOKING STATUS SCREENING (Once After 26 Yrs) Completed 10/17/2024 HEPATITIS A VACCINES Aged Out No long er eligible based on patient's age to complete this topic HIB VACCINES Aged Out No longer eligi ble based on patient's age to complete this topic MENINGOCOCCAL VACCINES (ACWY) Aged Out No longer eligible based on patient's age to complete this topic MENINGOCOCCAL VACCINES (B) Aged Out N o longer eligible based on patient's age to complete this topic Medical Devices Not on file Procedures Procedure Name Priority Date/Time Associated Diagnosis Comments PULMONARY FUNCTION TEST Routine 06/21/2025 6:23 PM EDT Chronic cough HEMOGLOBIN A1C Routine 11/09/2024 8:33 AM EST Type 2 diabetes mellitus without complication, unspecified whether prison insulin use BD DXA AXIAL (SPINE) WITH HIP Routine 07/27/2020 9:22 AM EDT Screening for osteoporosis from Last 3 Months or Most Recently Relevant to Health Maintenance Results * Pulmonary Function Test Reason for Exam: Cough; Type of PFT Test: Spirometry with bronchodilator, Lung Volumes, DLCO; Performing Location: [facility] (06/21/2025 6:23 PM EDT) FEV1 1.78 liters FVC 2.04 liters FEV1/FVC 87 % TLC 3.62 liters DLCO 18.02 ml/mmHg sec Anatomical Region Laterality Modality Other Impressions 06/21/2025 6:23 PM EDT PULMONARY FUNCTION STUDIES Full pulmonary function studies were performed on this 74 y.o. year-old female for evaluation of chronic cough. Review of the medical record reveals that the patient is a never smoker. Prior pulmonary function studies are not available for comparison. SPIROMETRY: The FEV1 is normal at 1.78 L or 85% predicted. The FVC is normal at 2.04 L or 75% predicted. The FEV1/FVC ratio is normal at 87%. After the administration of a bronchodilator agent, there is no technically significant change. FLOW-VOLUME LOOPS: Evaluation of the flow-volume loops reveals normal morphology of both the inspiratory and expiratory limbs with no significant difference when comparing the tracings performed pre- and post-bronchodilator. LUNG VOLUME MEASUREMENTS BY PLETHYSMOGRAPHY: The total lung capacity is mildly impaired (z-score between -1.65 and -2.5) at 3.62 L or 72% predicted. The RV/TLC ratio is normal at 39%. DIFFUSION CAPACITY: The diffusion capacity is normal at 18.0 mL/mmHg sec or 95% predicted. Resting oxygen saturation is 98% on room air. IMPRESSION: Abnormal pulmonary function studies as evidenced by a mild restrictive ventilatory defect with normal diffusion capacity. Spirometry reveals no evidence of airflow limitation and no bronchodilator response. Technical Note: As of 09/07/2024, the [facility] Pulmonary Function Testing (PFT) Laboratory transitioned from using race-specific to using race-neutral equations for determining lung function predicted values for all persons. Due to this change some individuals previously classified as either normal or abnormal may now change from one to the other category without a true change in lung function. Such changes, as well as changes in severity classification, should be considered broadly and in their clinical context. Absolute values of lung function are unaffected. For further questions please contact the interpreting physician or PFT photographic laboratory technician. For further discussion of this issue please see Elías et al [facility] 2022;[id number]. Please Note: Not all PFT labs within, or outside of, our system will be transitioning to new reference equations at the same time. For this reason, please pay close attention to absolute values when comparing results done at different testing locations within or outside of our system. us Neal A Bigda DO PFT ORDERABLES Final Result * (ABNORMAL) Hemoglobin A1c (11/09/2024 8:33 AM EST) HEMOGLOBIN A1C 6.3(H) 4.3 - 5.8 % [facility] Blood 11/09/2024 8:33 AM EST 11/09/2024 8:36 AM EST us Neal A Bigda DO LAB BLOOD ORDERABLES Final Resul t [facility] [address] [place] [address] * BD DXA AXIAL (SPINE) WITH HIP (07/27/2020 9:22 AM EDT) Anatomical Region Laterality Modality Bone Density Bone Density 07/27/2020 5:26 PM EDT Impressions 07/27/2020 5:29 PM EDT Ongoing normal bone mineral density at all 3 measured sites with no significant change in overall density since 2014. POS -[id number] Narrative 07/27/2020 5:29 PM EDT This is a 69-year-old woman who reports no perceived height loss. Current daily calcium supplementation. No history of steroid use nor hormone therapy Comparison is made to 09/27/2015. Evaluation of the lumbar spine and hips was performed and felt to be technically adequate. Total bone mineral density in the L1-L4 vertebral bodies was calculated at 1.080 g/cm2 with a T score of 0.3, and a Z-score of 2.5. This falls within the WHO classification of normal . Not a statistically significant change from 2015. Density of the right femoral NECK is 0.785g/cm2, T score -1.6, Z score 1.3. Density of the TOTAL right proximal femur is 0.997 g/cm2; T-score 0.4; Z-score 2.0. This falls within the WHO classification of normal . Not a statistically significant change from 2015. Density of the left femoral NECK is 0.764g/cm2, T score -0.8, Z score 1.1. Density of the TOTAL left proximal femur is 1.043 g/cm2; T-score 0.8; Z-score 2.4. This falls within the WHO classification of normal . Not a statistically significant change from 2014. Procedure Note Chavo Rondon MD - 07/27/2020 This is a 69-year-old woman who reports no perceived heightloss. Current daily calcium supplementation. No history of steroid use nor hormone therapy Comparison is made to 09/27/2015. Evaluation of the lumbar spine and hips was performed and felt to betechnically adequate. Total bone mineral density in the L1-L4 vertebral bodies was calculated at1.080 g/cm2 with a T score of 0.3, and a Z-score of 2.5. This falls within the WHO classification of normal . Not a statistically significant change from 2014. Density of the right femoral NECK is 0.785g/cm2, T score -1.6, Z score1.3. Density of the TOTAL right proximal femur is 0.997 g/cm2; T-score 0.4;Z-score 2.0. This falls within the WHO classification of normal . Not a statistically significant change from 2014. Density of the left femoral NECK is 0.764g/cm2, T score -0.8, Z score1.1. Density of the TOTAL left proximal femur is 1.043 g/cm2; T-score 0.8;Z-score 2.4. This falls within the WHO classification of normal . Not a statistically significant change from 2014. IMPRESSION: Ongoing normal bone mineral density at all 3 measured sites with nosignificant change in overall density since 2014. POS -[id number] us Neal Villarreal DO IMG BD BONE DENSITY DEXA Final R esult from Last 3 Months or Most Recently Relevant to Health Maintenance Insurance [place] P[place] BLUE REPLACEMENT MEDICARE PPO BLUE REPLACEMENT MEDICARE PPO BLUE REPLACEMENT MEDICARE PPO BLUE REPLACEMENT 10 [facility] [address] MEDICARE PPO BLUE REPLACEMENT 10 [facility] MEDICARE PPO BLUE REPLACEMENT 10 [facility] MEDICARE PPO BLUE REPLACEMENT 10 [facility] [address] MEDICARE PPO BLUE [place] [address] [place] [address] MEDICARE PPO BLUE REPLACEMENT Care Teams Parks Recreation Coordinator Relationship Specialty Start Date End Date Neal Villarreal DO [address] [place] [id number] PCP - General Internal Medicine 06/21/25 Additional Source Comments The information contained in this document represents components of the legal health record. It is not the complete legal health record.[facility]
--- OUTSIDE RECORDS SUMMARY | 2025-07-15 07:57 | XMS_ITS | Encounter Summary ---
Author Organization [facility] Address [address] [facility] [address] [place] [address] Phone Care Team Providers Care Vacuum Pan Tender Name Role Phone Mars Matias MD Unavailable [phone] Gwendolyn Vasquez BOAT JOINER HELPER Unavailable [phone] Re Suarez BOAT JOINER HELPER Unavailable [phone] Neal Villarreal DO Primary Care Provider [phone] Neal Villarreal DO Primary Care Provider [phone] Reason for Referral * MRI/CAT Scan - Closed Specialty Diagnoses / Procedures Referred By Christopher snider Referred To Contact Radiology Diagnoses Unspecified tear of unspecified meniscus, current injury, unspecified knee, initial encounter Other tear of meniscus of right knee, unspecified meniscus, unspecified whether old or current tear, initial encounter Procedures MRI Knee (Right) Neal Villarreal DO Phone: tel: fax: [email or web address]:[email or web address] Referral ID Status Reason Start Date Expiration Date Visits Re quested Visits Authorized [id number] Closed 11/22/2019 01/20/2020 1 1 Encounter Details Date Type Department Care Team ([facility] st Contact Info) Description 11/22/2019 Transcribe Orders [facility] Department [address] [place] [address] Neal Villarreal DO [address] [place] [address] [email or web address] Unspecified tear of unspecified meniscus, current injury, unspecified knee, initial encounter (Primary Dx); Other tear of meniscus of right knee, unspecified meniscus, unspecified whether old or current tear, initial encounter Social History Tobacco Use Types Packs/Day Years [...] documented as of this encounter Results * MRI KNEE WITHOUT CONTRAST (RIGHT) (11/28/2019 4:14 PM EST) Anatomical Region Laterality Modality Knee Right Magnetic Resonan ce 11/29/2019 8:20 AM EST Impressions 11/29/2019 8:29 AM EST 1. Extensive lateral meniscal tear with centrally displaced fragment. 2. Radial tear/maceration of the posterior horn of the medial meniscus. 3. Chondromalacia patella. 4. Moderate joint effusion POS - [id number] Narrative 11/29/2019 8:29 AM EST TECHNIQUE: 1.5 Lynne high-field MRI scanner. Axial PD FS, coronal PD FS, sagittal T1, oblique sagittal PD and PD FS parallel to the plane of the ACL . No comparison FINDINGS: Parrot-beak type tear mid to posterior lateral meniscus with centrally displaced fragment abutting the PCL. Focal radial tear and fraying of the posterior horn of the medial meniscus. Collateral and cruciate ligaments seem intact. There is a small focus of marrow edema in the upper pole of the patella centrally. This lies deep to an area of cartilage thinning and is probably a chronic finding due to chondromalacia patella rather than trauma. No other marrow edema. Moderate generalized loss of articular cartilage in the medial and lateral compartments without focal osteochondral defect. Moderate-sized joint effusion. No popliteal cyst. Distal quadriceps and patellar tendon and patellar retinacula seem intact. Procedure Note Chavo Rondon MD - 11/29/2019 TECHNIQUE: 1.5 Lynne high-field MRI scanner. Axial PD FS, coronal PD FS, sagittal T1, oblique sagittal PD and PD FSparallel to the plane of the ACL . No comparison FINDINGS: Parrot-beak type tear mid to posterior lateral meniscus with centrallydisplaced fragment abutting the PCL. Focal radial tear and fraying of the posterior horn of the medialmeniscus. Collateral and cruciate ligaments seem intact. There is a small focus of marrow edema in the upper pole of the patellacentrally. This lies deep to an area of cartilage thinning and is probablya chronic finding due to chondromalacia patella rather than trauma. No other marrow edema. Moderate generalized loss of articular cartilage inthe medial and lateral compartments without focal osteochondral defect. Moderate-sized joint effusion. No popliteal cyst. Distal quadriceps and patellar tendon and patellar retinacula seemintact. IMPRESSION: 1. Extensive lateral meniscal tear with centrally displaced fragment. 2. Radial tear/maceration of the posterior horn of the medial meniscus. 3. Chondromalacia patella. 4. Moderate joint effusion POS - [id number] Neal Villarreal DO IM MR EXTREMITY Final Result documented in this encounter Visit Diagnoses Diagnosis Other tear of meniscus of right knee, unspecified meniscus, unspecified whether old or current tear, initial encounter Other tear of meniscus of right knee, unspecified meniscus, unspecified whether old or current tear, initial encounter documented in this encounter Additional Health Concerns Infection Onset Date Last Indicated Resolved Time CoV-Risk 10/17/2024 10/17/2024 10/28/2024 1:21 AM EST documented as of this encounter Care Teams Vacuum Pan Tender Relationship Specialty Start Date End Date Neal Villarreal DO [address] [facility] [address] [place] [address] PCP - General Internal Medicine 11/19/17 06/20/25 Neal Villarreal DO [address] [facility] [place] [address] PCP - General Internal Medicine 06/21/25 Mars Matias MD [address] [place] [id number] Historical LMR Provider 08/16/17 11/03/21 Gwendolyn Vasquez NP [address] [place] [address] Historical LMR Provider 08/16/17 2 Re Suarez NP [address] [place] [address] [address] [place] [address] Historical LMR Provider 08/16/17 11/03/21 documented as of this encounter Additional Source Comments The information contained in this document represents components of the legal health record. It is not the complete legal health record.[facility]
--- OUTSIDE RECORDS SUMMARY | 2025-07-15 07:57 | XMS_ITS | Encounter Summary ---
Author Organization [facility] Address [address] [facility] [address] [place] [address] Phone Care Team Providers Care Medical Staffing Coordinator Name Role Phone Neal Villarreal DO Primary Care Provider [phone] Neal Villarreal DO Primary Care Provider [phone] Encounter Details Date Type Department Care Team (Late st Contact Info) Description 12/27/2022 Transcribe Orders Virtual Department [address] [place] [address] Neal Villarreal DO [address] [facility] [place] [address] [place] [address] Left foot pain (Primary Dx) Social History Tobacco Use Types [...] as of this encounter Results * XR FOOT 3 OR MORE VIEWS (LEFT) (01/01/2023 8:15 AM EST) Anatomical Region Laterality Modality Foot Left Computed Radiogr aphy 01/01/2023 10:2 9 PM EST Impressions 01/01/2023 10:31 PM EST Moderate first metatarsophalangeal joint osteoarthritis. Bones demineralized. Mild soft tissue swelling without underlying acute osseous abnormality. Narrative 01/01/2023 10:31 PM EST XR FOOT 3 OR MORE VIEWS (LEFT) COMPARISON: None FINDINGS: No acute fracture or dislocation. Osseous alignment within normal limits. Bones demineralized. Moderate joint space narrowing with subchondral sclerosis and bony proliferative change centered at the first metatarsophalangeal joint. Mild interphalangeal joint space narrowing at the toes. Mild mid to forefoot soft tissue swelling. No periarticular bone loss or erosion. Calcific enthesopathy of the Achilles tendon attachment with associated plantar calcaneal spur. Procedure Note Jason Lawrence MD - 01/01/2023 XR FOOT 3 OR MORE VIEWS (LEFT) COMPARISON: None FINDINGS: No acute fracture or dislocation. Osseous alignment within normal limits.Bones demineralized. Moderate joint space narrowing with subchondral sclerosis and bonyproliferative change centered at the first metatarsophalangeal joint. Mildinterphalangeal joint space narrowing at the toes. Mild mid to forefootsoft tissue swelling. No periarticular bone loss or erosion. Calcific enthesopathy of the Achilles tendon attachment with associatedplantar calcaneal spur. IMPRESSION: Moderate first metatarsophalangeal joint osteoarthritis. Bones demineralized. Mild soft tissue swelling without underlying acute osseous abnormality. Neal Villarreal DO IMG XR LOWER EXTREMITY Final Res ult documented in this encounter Visit Diagnoses Diagnosis Left foot pain- Primary Pain in soft tissues of limb Left foot pain Pain in soft tissues of limb documented in this encounter Additional Health Concerns Infection Onset Date Last Indicated Resolved Time CoV-Risk 10/17/2024 10/17/2024 10/28/2024 1:21 AM EST documented as of this encounter Care Teams Medical Staffing Coordinator Relationship Specialty Start Date End Date Neal Villarreal DO PCP - General Internal Medicine 11/19/17 06/20/25 Neal Villarreal DO [address] [place] [address] [email or web address] PCP - General Internal Medicine 06/21/25 documented as of this encounter Additional Source Comments The information contained in this document represents components of the legal health record. It is not the complete legal health record.[facility]
--- OUTSIDE RECORDS SUMMARY | 2025-07-15 07:57 | XMS_ITS | Encounter Summary ---
Author Organization [facility] Address [address] [place] [address] Phone Care Team Providers Care Senior Accounting Specialist Name Role Phone Neal Villarreal Primary Care Provider [phone] MikeNeal emerson DO Primary Care Provider [phone] Encounter Details Date Type Department Care Team (Late st Contact Info) Description 03/08/2024 Procedure Pass [facility], [facility] [address] [place] [address] Social History Tobacco Use Types Packs/Day Years [...] documented as of this encounter Care Teams Senior Accounting Specialist Relationship Specialty Start Date End Date Neal Villarreal DO [email or web address] PCP - General Internal Medicine 11/19/17 06/20/25 Neal Villarreal DO [address] [place] [address] PCP - General Internal Medicine 06/21/25 documented as of this encounter Additional Source Comments The information contained in this document represents components of the legal health record. It is not the complete legal health record.[facility]
--- OUTSIDE RECORDS SUMMARY | 2025-07-15 07:57 | XMS_ITS | Encounter Summary ---
Author Organization [facility] Address [address] [facility] [address] [place] [address] Phone Care Team Providers Care Operator/Assistant Foreman Name Role Phone Mars Matias MD Unavailable Gwendolyn Vasquez DIRECTOR OF ASSESSMENT Unavailable Re Suarez DIRECTOR OF ASSESSMENT Unavailable [phone] Neal Villarreal DO Primary Care Provider [phone] Neal Villarreal DO Primary Care Provider Encounter Details Date Type Department Care Team (Late st Contact Info) Description 02/28/2020 Ancillary Orders Virtual Department [address] [place] [address] Neal Villarreal DO [address] [facility] [place] [address] [place] [address] Breast cancer screening by mammogram Social History Tobacco Use Types Packs/Day Years [...] documented as of this encounter Results * BI MAMMOGRAM SCREENING WITH TOMOSYNTHESIS WITH CAD (BILATERAL) (07/13/2020 12:52 PM EDT) Anatomical Region Laterality Modality Breast Left, Breast Right, Breast Bilateral Bila teral Mammography 07/13/2020 8:00 PM EDT Impressions 07/13/2020 8:04 PM EDT BILATERAL BREASTS: Negative, no evidence of malignancy. Normal interval follow- up is recommended in 12 months. BI-RADS: BI-RADS CATEGORY: 1 - Negative. DENSITY: There are scattered fibroglandular densities. Narrative 07/13/2020 8:04 PM EDT STUDY: Bilateral screening mammography with tomosynthesis and CAD TECHNIQUE: Bilateral full-field digital screening mammography is obtained and read in conjunction with computer-aided detection. Tomosynthesis as well as 2-D C view imaging were obtained. COMPARISON: Comparison made to multiple prior, most recent April 09, 2018, and most remote right breast on May 25, 2012. BREAST COMPOSITION: There are scattered areas of fibroglandular density BILATERAL BREASTS: No significant masses, calcifications or other abnormalities are seen. Procedure Note Brii Mari MD - 07/13/2020 STUDY: Bilateral screening mammography with tomosynthesis and CAD TECHNIQUE: Bilateral full-field digital screening mammography is obtainedand read in conjunction with computer-aided detection. Tomosynthesis aswell as 2-D C view imaging were obtained. COMPARISON: Comparison made to multiple prior, most recent April 09, 2018,and most remote right breast on May 25, 2012. BREAST COMPOSITION: There are scattered areas of fibroglandulardensity BILATERAL BREASTS: No significant masses, calcifications or otherabnormalities are seen. IMPRESSION: BILATERAL BREASTS: Negative, no evidence of malignancy. Normal intervalfollow-up is recommended in 12 months. BI-RADS: BI-RADS CATEGORY: 1 - Negative. DENSITY: There are scattered fibroglandular densities. us Neal A Bigda DO IMG MG EXAMS Final Result documented in this encounter Visit Diagnoses Diagnosis Breast cancer screening by mammogram Breast cancer screening by mammogram documented in this encounter Additional Health Concerns Infection Onset Date Last Indicated Resolved Time CoV-Risk 10/17/2024 10/17/2024 10/28/2024 1:21 AM EST documented as of this encounter Care Teams Operator/Assistant Foreman Relationship Specialty Start Date End Date Neal Villarreal DO [address] [address] PCP - General Internal Medicine 11/19/17 06/20/25 Neal Villarreal DO [address] [place] [address] PCP - General Internal Medicine 06/21/25 Mars Matias MD [address] [place] [address] Historical LMR Provider 08/16/17 11/03/21 Gwendolyn Vasquez, NITHIN [address] [place] [address] Historical LMR Provider 08/16/17 2 Re Suarez NP [address] [place] [address] Historical LMR Provider 08/16/17 11/03/21 documented as of this encounter Additional Source Comments The information contained in this document represents components of the legal health record. It is not the complete legal health record.[facility]
--- OUTSIDE RECORDS SUMMARY | 2025-07-15 07:57 | XMS_ITS | Encounter Summary ---
Author Organization [facility] Address [address] [facility] [address] [place] [address] Phone Care Team Providers Care Permaculture Contractor Name Role Phone Neal Villarreal DO Primary Care Provider [phone] Neal Villarreal DO Primary Care Provider [phone] Encounter Details Date Type Department Care Team (Late st Contact Info) Description 01/29/2023 Transcribe Orders Virtual Department [address] [place] [address] Neal Villarreal DO [address] [facility] [place] [address] [place] [address] [email or web address] Breast screening (Primary Dx) Social History Tobacco Use Types [...] MAMMOGRAM SCREENING WITH TOMOSYNTHESIS WITH CAD (BILATERAL) (02/27/2023 9:51 AM EDT) Anatomical Region Laterality Modality Breast Left, Breast Right, Breast Bilateral Bila teral Mammography 02/27/2023 10:3 6 AM EDT Impressions 02/27/2023 10:40 AM EDT No findings suspicious for malignancy are identified. In the absence of a worrisome palpable abnormality, annual screening mammography is recommended. BI-RADS CATEGORY: 1 - Negative. DENSITY: There are scattered fibroglandular densities. Narrative 02/27/2023 10:40 AM EDT AVAILABLE COMPARISON: 07/13/2020 through 10/17/2000 Bilateral 3-D tomosynthesis with 2-D reconstructions in the CC and MLO projection. Computer-aided detection system was utilized. No new mass, asymmetry, architectural distortion or suspicious calcifications have become apparent in either breast. Procedure Note Chavo Rondon MD - 02/27/2023 AVAILABLE COMPARISON: 07/13/2020 through 10/17/2000 Bilateral 3-D tomosynthesis with 2-D reconstructions in the CC and MLOprojection. Computer-aided detection system was utilized. No new mass, asymmetry, architectural distortion or suspiciouscalcifications have become apparent in either breast. IMPRESSION: No findings suspicious for malignancy are identified. In the absence of aworrisome palpable abnormality, annual screening mammography isrecommended. BI-RADS CATEGORY: 1 - Negative. DENSITY: There are scattered fibroglandular densities. Neal Villarreal DO IMG MG EXAMS Final Result documented in this encounter Visit Diagnoses Diagnosis Breast screening- Primary Breast screening, unspecified Breast screening Breast screening, unspecified documented in this encounter Additional Health Concerns Infection Onset Date Last Indicated Resolved Time CoV-Risk 10/17/2024 10/17/2024 10/28/2024 1:21 AM EST documented as of this encounter Care Teams Permaculture Contractor Relationship Specialty Start Date End Date Neal Villarreal DO PCP - General Internal Medicine 11/19/17 06/20/25 Neal Villarreal DO [address] [place] [address] [email or web address] PCP - General Internal Medicine 06/21/25 documented as of this encounter Additional Source Comments The information contained in this document represents components of the legal health record. It is not the complete legal health record.[facility]
--- OUTSIDE RECORDS SUMMARY | 2025-07-15 07:57 | XMS_ITS | Encounter Summary ---
Author Organization [facility] Address [address] [facility] [address] [place] [address] Phone Care Team Providers Care Roustabout Crew Name Role Phone Mars Matias MD Unavailable [phone] Gwendolyn Vasquez VISUAL DEVELOPER Unavailable [phone] Re Suarez VISUAL DEVELOPER Unavailable [phone] Neal Villarreal DO Primary Care Provider [phone] Neal Villarreal DO Primary Care Provider [phone] Encounter Details Date Type Department Care Team (Late st Contact Info) Description 11/19/2017 Ancillary Orders [facility] External Provider Virtual Department [address] [place] [address] Neal Villarreal DO [address] [facility] [place] [address] [place] [address] Breast screening Social History Tobacco Use Types Packs/Day Years Used Date Smoking Tobacco: Never Assessed Comments Unknown Sex and Gender Information Value Date Recorded Sex Assigned at Not on file Legal Sex Female 11:15 AM EST Gender Identity Not on file Sexual Orientation Not on file documented as of this encounter Plan of Treatment Not on file documented as of this encounter Results * BI MAMMOGRAM SCREENING WITH TOMOSYNTHESIS WITH CAD (BILATERAL) (12/10/2017 1:07 PM EST) Anatomical Region Laterality Modality Breast Left, Breast Right, Breast Bilateral Bila teral Mammography 12/10/2017 1:21 PM EST Impressions 12/10/2017 1:23 PM EST Stable appearance relative to prior imaging. No findings suggestive of malignancy are seen. BI-RADS CATEGORY: 2 - Benign finding. DENSITY: There are scattered fibroglandular densities. POS - [id number] Narrative 12/10/2017 1:23 PM EST Full-field digital mammography is obtained with computer-aided detection. Comparison with prior imaging from 10/16/2016 is made with older imaging dating back as far as 10/17/2000 also reviewed. There is scattered fibroglandular density evident in the breasts. In addition to 2-D C view imaging, tomosynthesis images are obtained in two projections of each breast. Skin lesions and vascular calcifications are unchanged.. No dominant soft tissue mass of concern, suspicious cluster of calcifications, significant interval skin changes, or architectural distortion is identified. Procedure Note Lius M Mishra MD - 12/10/2017 Full-field digital mammography is obtained with computer-aided detection.Comparison with prior imaging from 10/16/2016 is made with older imagingdating back as far as 10/17/2000 also reviewed. There is scattered fibroglandular density evident in the breasts. Inaddition to 2-D C view imaging, tomosynthesis images are obtained in twoprojections of each breast. Skin lesions and vascular calcifications are unchanged.. No dominant softtissue mass of concern, suspicious cluster of calcifications, significantinterval skin changes, or architectural distortion is identified. IMPRESSION: Stable appearance relative to prior imaging. No findings suggestive ofmalignancy are seen. BI-RADS CATEGORY: 2 - Benign finding. DENSITY: There are scattered fibroglandular densities. POS - [id number] us Neal A Bigda DO IMG MG EXAMS Final Result documented in this encounter Visit Diagnoses Diagnosis Breast screening Breast screening, unspecified Breast screening Breast screening, unspecified documented in this encounter Additional Health Concerns Infection Onset Date Last Indicated Resolved Time CoV-Risk 10/17/2024 10/17/2024 10/28/2024 1:21 AM EST documented as of this encounter Care Teams Roustabout Crew Relationship Specialty Start Date End Date Neal Villarreal DO [address] [address] PCP - General Internal Medicine 11/19/17 06/20/25 Neal Villarreal DO [address] [place] [address] PCP - General Internal Medicine 06/21/25 Mars Matias MD [address] [place] [address] Historical LMR Provider 08/16/17 11/03/21 Gwendolyn Vasquez, NITHIN [address] [place] [address] Historical LMR Provider 08/16/17 2 Re Suarez NP [address] [place] [address] Historical LMR Provider 08/16/17 11/03/21 documented as of this encounter Additional Source Comments The information contained in this document represents components of the legal health record. It is not the complete legal health record.[facility]
--- OUTSIDE RECORDS SUMMARY | 2025-07-15 07:57 | XMS_ITS | Encounter Summary ---
Author Organization [facility] Address [facility] [address] [place] [address] Phone Care Team Providers Care Ergonomic Specialist Name Role Phone Neal Villarreal DO Primary Care Provider [phone] Neal Villarreal DO Primary Care Provider [phone] Encounter Details Date Type Department Care Team (Late st Contact Info) Description 01/29/2023 Procedure Pass [facility], [address] [address] Social History Tobacco Use Types Packs/Day Years Used Date Smoking Tobacco: Never Smokeless Tobacco: Never Alcohol Use Standard Drinks/Week Comments Not Currently 0 (1 standard drink = 0.6 oz pur e alcohol) About 5 a month Comments No Sex and Gender Information Value [...] documented as of this encounter Care Teams Ergonomic Specialist Relationship Specialty Start Date End Date Neal Villarreal DO PCP - General Internal Medicine 11/19/17 06/20/25 Neal Villarreal DO [address] [place] [address] [email or web address] PCP - General Internal Medicine 06/21/25 documented as of this encounter Additional Source Comments The information contained in this document represents components of the legal health record. It is not the complete legal health record.[facility]
--- OUTSIDE RECORDS SUMMARY | 2025-07-15 07:57 | XMS_ITS | Encounter Summary ---
Author Organization [facility] Address [facility] [address] [place] [address] Phone Care Team Providers Care Transit Planning Manager Name Role Phone Mars Matias MD Unavailable [phone] Gwendolyn Vasquez DENTAL RECEPTIONIST Unavailable Re Suarez DENTAL RECEPTIONIST Unavailable [phone] Neal Villarreal DO Primary Care Provider [phone] Neal Villarreal DO Primary Care Provider [phone] Encounter Details Date Type Department Care Team (Late st Contact Info) Description 11/22/2019 Procedure Pass [facility], [address] [address] Social History Tobacco Use Types Packs/Day Years Used Date Smoking Tobacco: Never Smokeless Tobacco: Never Comments No Sex and Gender Information Value Date Recorded Sex Assigned at Not on file Legal Sex Female 11:15 AM EST Gender Identity Not on file Sexual Orientation Not on file documented as of this encounter Last Filed Vital Signs Vital Sign Reading Time Taken Comments Blood Pressure - - Pulse - - Temperature - - Respiratory Rate - - Oxygen Saturation - - Inhaled Oxygen Concentration - - Weight 99.8 kg (220 lb) 11/23/2019 1:07 PM EST Height 165.1 cm (5' 5 ) 11/23/2019 1:07 PM EST Body Mass Index 36.61 11/23/2019 1:07 PM EST documented in this encounter Plan of Treatment Not on file documented as of this encounter Visit Diagnoses Not on filedocumented in this encounter Additional Health Concerns Infection Onset Date Last Indicated Resolved Time CoV-Risk 10/17/2024 10/17/2024 10/28/2024 1:21 AM EST documented as of this encounter Care Teams Transit Planning Manager Relationship Specialty Start Date End Date CherelleNealDO [address] [address] PCP - General Internal Medicine 11/19/17 06/20/25 Neal Villarreal DO [address] [place] [address] PCP - General Internal Medicine 06/21/25 Mars Matias MD [address] [place] [address] Historical LMR Provider 08/16/17 11/03/21 Gwendolyn Vasquez NP [address] [place] [address] Historical LMR Provider 08/16/17 2 Re Suarez NP [address] [place] [address] Historical LMR Provider 08/16/17 11/03/21 documented as of this encounter Additional Source Comments The information contained in this document represents components of the legal health record. It is not the complete legal health record.[facility]
[2025-07-15 13:55] LABS: Hemoglobin A1C 138.8230 umol/L; Total Hemoglobin (HGBA1C) 3548.2731 umol/L
[2025-07-15 14:02] LABS: Alanine Aminotransferase 26 U/L (0-31); Albumin Level 4.1 g/dL (3.5-5.0); Alkaline Phosphatase 65 U/L (39-117); Anion Gap 7 (12-20); Aspartate Amino Transferase 29 U/L (5-31); Blood Urea Nitrogen 22 mg/dL (9-16); Calcium 9.2 mg/dL (8.4-10.2); Carbon Dioxide 28 mmol/L (22-29); Chloride 108 mmol/L (96-108); Estimated Glomerular Filt Rate > 60; Potassium 4.1 mmol/L (3.3-5.1); Sodium 139 mmol/L (135-145); Total Protein 7.2 g/dL (6.5-8.0)
== END 2025-07-15 07:55 | disposition home or self-care (01) ==
LOC: HO.MANLDS 07:54
PROVIDERS: Visit Provider Internal Medicine
DX: I10 Essential (primary) hypertension (principal); E11.9 Type 2 diabetes mellitus without complications
CPT/HCPCS: 36415; 80053; 83036

== ENCOUNTER 2025-07-21 10:13 | Outpatient (REF) | payer MEDICARE, SELFPAY ==
--- OUTSIDE RECORDS SUMMARY | 2024-10-17 13:45 | XMS_ITS | Encounter Summary ---
Author Organization [facility] Address [facility] [address] [place] [address] Phone Care Team Providers Care Recreational Counselor Name Role Phone Neal Villarreal Primary Care Provider [phone] Encounter Details Date Type Department Care Team (Late st Contact Info) Description 10/17/2024 12:45 PM EST Hospital Encounter [facility] [address] [place] [phone] Jessica Woodson, RN NICU [address] [place] [address] [email or web address] Social History Tobacco Use Types Packs/Day Years Used Date Smoking Tobacco: Never Smokeless Tobacco: Never Alcohol Use Standard Drinks/Week Comments Not Currently 0 (1 standard drink = 0.6 oz pur e alcohol) About 5 a month Education Answer Date Recorded Are you interested in more education? Not on jose f e 02/21/2023 Are you concerned about learning? Not on file 02/21/2023 No 02/21/2023 No 02/21/2023 Digital Access Answer Date Recorded No 03/24/2023 No 03/24/2023 Reliable internet access at home? Not on file 03/24/2023 Device with a working camera? Not on file Comments No Sex and Gender Information Value Date Recorded Sex Assigned at Not on file Legal Sex Female 11:15 AM EST Gender Identity Not on file Sexual Orientation Not on file documented as of this encounter Plan of Treatment Not on file documented as of this encounter Procedures Procedure Name Priority Date/Time Associated Diagnosis Comments XR CHEST PA AND LATERAL 2 VIEWS Urgent/patient waiting 10/17/2024 1:05 PM EST Cough documented in this encounter Results * XR CHEST PA AND LATERAL 2 VIEWS (10/17/2024 1:05 PM EST) Anatomical Region Laterality Modality Chest Computed Radiogr aphy 10/17/2024 1:28 PM EST Impressions 10/17/2024 1:30 PM EST Normal chest. Narrative 10/17/2024 1:30 PM EST XR CHEST PA AND LATERAL 2 VIEWS Referring clinician's provided indication for this examination in Epic: Cough COMPARISON: None FINDINGS: Devices/Tubes/Lines: None. Lungs: The lungs are clear. No focal consolidation or pulmonary edema. Pleura: No pleural effusion or pneumothorax. Heart/Mediastinum: Normal heart size and mediastinal contour. Aortic atherosclerosis. Bones/Soft Tissues: No significant skeletal abnormality. Procedure Note Henok Rodriguez MD - 10/17/2024 XR CHEST PA AND LATERAL 2 VIEWS Referring clinician's provided indication for this examination in Epic:Cough COMPARISON: None FINDINGS: Devices/Tubes/Lines: None. Lungs: The lungs are clear. No focal consolidation or pulmonary edema. Pleura: No pleural effusion or pneumothorax. Heart/Mediastinum: Normal heart size and mediastinal contour. Aorticatherosclerosis. Bones/Soft Tissues: No significant skeletal abnormality. IMPRESSION: Normal chest. us Jessica Woodson RN NICU IMG XR CHEST Final R esult documented in this encounter Visit Diagnoses Not on filedocumented in this encounter Additional Health Concerns Infection Onset Date Last Indicated Resolved Time CoV-Risk 10/17/2024 10/17/2024 10/28/2024 1:21 AM EST documented as of this encounter Care Teams Recreational Counselor Relationship Specialty Start Date End Date Neal Villarreal DO PCP - General Internal Medicine 11/19/17 06/20/25 documented as of this encounter Additional Source Comments The information contained in this document represents components of the legal health record. It is not the complete legal health record.[facility]
--- NOTE | ~2025-07-21 | XR_ITS ---
Exam: X-ray, bilateral knees.XR KNEE 3 VIEWS BILATERAL TECHNIQUE: Three views lower extremity joint, bilateral knees INDICATION: BILATERAL KNEE PAIN COMPARISON: None available. FINDINGS: RIGHT KNEE: There is mild to moderate narrowing of the lateral compartment. There is minimal narrowing of medial compartment. There are tricompartmental marginal osteophytes. There is no joint effusion. LEFT KNEE: There is mild to moderate narrowing of the lateral compartment. There is minimal narrowing of medial compartment. There are tricompartmental marginal osteophytes. There is no joint effusion. XR/XR Knee Anish 3V IMPRESSION: Right knee: Mild osteoarthritis Left knee: Mild osteoarthritis Electronically signed by: Luciano Garcia MD 07/21/2025 10:42 AM EDT
--- OUTSIDE RECORDS SUMMARY | 2025-07-21 12:31 | XMS_ITS | Encounter Summary ---
Author Organization [facility] Address [address] [facility] [address] [place] [address] Phone Care Team Providers Care Keyliner Name Role Phone Mars Matias MD Unavailable Gwendolyn Vasquez FUNDRAISING ASSISTANT Unavailable [phone] Re Suarez FUNDRAISING ASSISTANT Unavailable [phone] Neal Villarreal DO Primary Care Provider [phone] Neal Villarreal DO Primary Care Provider [phone] Encounter Details Date Type Department Care Team (Late st Contact Info) Description 11/19/2017 Ancillary Orders [facility] External Provider Virtual Department [address] [place] [address] Neal Villarreal DO [address] [facility] [place] [address] [place] [address] Breast screening Social History Tobacco Use Types [...] There are scattered fibroglandular densities. POS - [id number] Narrative 12/10/2017 1:23 PM EST Full-field digital [...] or architectural distortion is identified. Procedure Note Luis M Mishra MD - 12/10/2017 Full-field digital [...] There are scattered fibroglandular densities. POS - [id number] us Neal A Bigda DO IMG MG EXAMS Final Result documented in this encounter Visit Diagnoses Diagnosis Breast screening Breast screening, unspecified Breast screening Breast screening, unspecified documented in this encounter Additional Health Concerns Infection Onset Date Last Indicated Resolved Time CoV-Risk 10/17/2024 10/17/2024 10/28/2024 1:21 AM EST documented as of this encounter Care Teams Keyliner Relationship Specialty Start Date End Date Neal Villarreal DO [address] [address] PCP - General Internal Medicine 11/19/17 06/20/25 Neal Villarreal DO [address] [place] [address] PCP - General Internal Medicine 06/21/25 Mars Matias MD [address] [place] [address] Historical LMR Provider 08/16/17 11/03/21 Gwendolyn Vasquez, NITHIN [address] [place] [address] Historical LMR Provider 08/16/17 2 Re Suarez NP [address] [place] [address] Historical LMR Provider 08/16/17 11/03/21 documented as of this encounter Additional Source Comments The information contained in this document represents components of the legal health record. It is not the complete legal health record.[facility]
--- OUTSIDE RECORDS SUMMARY | 2025-07-21 12:31 | XMS_ITS | Encounter Summary ---
Author Organization [facility] Address [address] [facility] [address] [place] [address] Phone Care Team Providers Care Cable Operator Name Role Phone Mars Matias MD Unavailable Gwendolyn Vasquez UNDERGROUND MINE SUPERINTENDENT Unavailable [phone] Re Suarez UNDERGROUND MINE SUPERINTENDENT Unavailable [phone] Neal Villarreal DO Primary Care Provider [phone] Neal Villarreal DO Primary Care Provider [phone] Reason for Referral * MRI/CAT Scan - Closed Specialty Diagnoses / Procedures Referred By Christopher snider Referred To Contact Radiology Diagnoses Unspecified tear of unspecified meniscus, current injury, unspecified knee, initial encounter Other tear of meniscus of right knee, unspecified meniscus, unspecified whether old or current tear, initial encounter Procedures MRI Knee (Right) Neal Villarreal DO Phone: tel: fax: [email or web address] Referral ID Status Reason Start Date Expiration Date Visits Re quested Visits Authorized [id number] Closed 11/22/2019 01/20/2020 1 1 Encounter Details Date Type Department Care Team ([facility] st Contact Info) Description 11/22/2019 Transcribe Orders [facility] Department [address] [place] [address] Neal Villarreal DO [address] [place] [address] [email or web address] Unspecified tear of unspecified meniscus, current injury, [...] documented as of this encounter Care Teams Cable Operator Relationship Specialty Start Date End Date Neal Villarreal DO 26 [facility] 6 [place] [address] PCP - General Internal Medicine 11/19/17 06/20/25 Neal Villarreal DO 179 [place] [address] PCP - General Internal Medicine 06/21/25 Mars Matias MD [address] [place] [address] Historical LMR Provider 08/16/17 11/03/21 Gwendolyn Vasquez NP [address] [place] [address] Historical LMR Provider 08/16/17 2 Re Suarez NP [address] [place] [address] 6 [place] [address] Historical LMR Provider 08/16/17 11/03/21 documented as of this encounter Additional Source Comments The information contained in this document represents components of the legal health record. It is not the complete legal health record.[facility]
--- OUTSIDE RECORDS SUMMARY | 2025-07-21 12:31 | XMS_ITS | Clinical Summary ---
Author Organization [facility] Address [address] [place] [address] Phone Care Team Providers Care Equal Opportunity Specialist Name Role Phone Neal Villarreal Primary Care Provider [phone] Allergies Active Allergy Reactions Criticality Noted Date [...] Encounters Date Type Department Care Team Description 07/19/2025 Transcribe Orders Virtual Department 30 [place] [address] Neal Villarreal DO Encounter for screening for osteoporosis (Primary Dx); Breast screening 06/21/2025 5:23 PM EDT - 06/21/2025 11:59 PM EDT Hospital Encounter [facility] [address] [place] [address] Neal Villarreal DO Discharge Disposition: Home or Self Care 06/16/2025 Transcribe Orders [facility] [address] [place] [address] Neal Villarreal DO from Last 3 Months [...] PRESSURE 04/17/2025 10/17/2024 HEMOGLOBIN A1C 05/09/2025 11/09/2024, 0710/2019, 11/10/2019, Additional history exists INFLUENZA VACCINE (#1) [...] 2 diabetes mellitus without complication, unspecified whether motion picture printer insulin use BD DXA AXIAL (SPINE) WITH HIP Routine 07/27/2020 9:22 AM EDT Screening for osteoporosis from Last 3 Months or Most Recently Relevant to Health Maintenance Results * Pulmonary Function Test Reason for Exam: Cough; Type of PFT Test: Spirometry with bronchodilator, Lung Volumes, DLCO; Performing Location: [facility] (06/21/2025 6:23 PM EDT) [facility] Signature FEV1 1.78 liters FVC 2.04 liters FEV1/FVC [...] response. Technical Note: As of 09/07/2024, the [facility] Pulmonary Function Testing (PFT) Laboratory transitioned from [...] please contact the interpreting physician or PFT laboratory coordinator. For further discussion of this issue please see Elías et al [facility] 2022;[phone]([id number]. Please Note: Not all PFT labs within, [...] HEMOGLOBIN A1C 6.3(H) 4.3 - 5.8 % [facility] Blood 11/09/2024 8:33 AM EST 11/09/2024 8:36 AM EST us Neal A Bigda DO LAB BLOOD ORDERABLES Final Resul t Performing Organization Address City/State/[facility] Co de Phone Number [address] [address] * BD DXA AXIAL (SPINE) WITH HIP [...] density since 2014. POS -[id number] us Neal A Bigda DO IMG BD BONE DENSITY DEXA Final R esult from Last 3 Months or Most Recently Relevant to Health Maintenance Insurance Care Teams Equal Opportunity Specialist Relationship Specialty Start Date End Date Neal Villarreal DO [address] [place] [address] PCP - General Internal Medicine 06/21/25 Additional Source Comments The information contained in this document represents components of the legal health record. It is not the complete legal health record.[facility]
--- OUTSIDE RECORDS SUMMARY | 2025-07-21 12:31 | XMS_ITS | Patient Health Record ---
Author Organization [facility] Address [address] [place] [address] Care Team Providers Care Ceo And Co Founder Name Role Phone Neal Villarreal Primary Care Provider Mykel Parr [phone] Allergies Allergen (clinical drug ingredient) Drug/Non Drug Allergy documented on EMR Reaction Allergy Type Onset Date Status amoxicillin / clavulanate Augmentin Unknown Drug Allergy Active Reason For Referral No Information Medications Medication SIG (Take, Route, Frequency, Duration) Notes Start Date End Date Status metFORMIN HCl 1000 MG 1 tablet with a me al Orally Once a day Active Naproxen 250 MG 1 tablet with food o r milk Orally Once a day Active Losartan Potassium 50 MG 1 tablet Orally Once a day Active Pravastatin Sodium 40 MG 1 tablet Orally Once a day for 30 day(s) Active amLODIPine Besylate 10 MG 1 tablet Orall y Once a day for 30 day(s) Active Immunizations Vaccine Route Administration Date Status Comme nts Influenza Unknown 07/27/2019 Administered Problems Problem Type SNOMED Code ICD Code Onset Dates Problem Status W/U Status Risk Notes Problem 553532872 Encounter for screening for malignant neoplasm of colon (Z12.11) Active confirmed Problem Screening for malignant neoplasm of rectum (438014887) Encounter for screening for malignant neoplasm of rectum (Z12.12) Active confirmed Problem 84931098 Preprocedural examination (Z01.818) Active confirmed Problem 777649249 Encounter for long-term (current) use of NSAIDs (Z79.1) Active confirmed Problem 652365128 Fatty liver (K76.0) Active confirmed Problem 13366390 Iron excess (E83.19) Active confirmed Problem 967452956 Elevated liver function tests (R94.5) Active confirmed Problem 99762072 Hypertension, unspecified type (I10) Active confirmed Plan Of Treatment Pending Test Test Name Order Date LIVER PROFILE 10/26/2019 IRON + IBC (FE) 10/26/2019 FERRITIN 10/26/2019 CBC w DIFF 10/26/2019 PROTHROMBIN TIME (PT, INR) 10/26/2019 ALPHA-FETOPROTEIN,TUMOR MARKER 9 US ABDOMEN COMPLETE W/ELASTOGRAPH 2018 Future Test Test Name Order Date COLONOSCOPY 09/26/2015 Insurance Providers Payer Name Payer Address Payer Phone Subscriber Number Group Number Insured Name Patient Relationship to Insured Coverage Start Date Coverage End Date [facility] [address] [place], [place] [id number] [phone] [id number] NIMESH JOSELYN Self - patient is the insured Medical (General) History Medical History History ICD Code Colonoscopy 03-19-2009 and 2015--neg. except for sigmoid diverticulosis and internal hemorrhoids 1 Small Tubular adenoma removed in 2002 Denies ME,DM,CVA,Lung disease,renal dise ase Iritis-Dr. Mckenzie HTN Fatty liver--neg. 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
--- OUTSIDE RECORDS SUMMARY | 2025-07-21 12:31 | XMS_ITS | Encounter Summary ---
Author Organization [facility] Address [address] [place] [address] Phone Care Team Providers Care Entertainment Lawyer Name Role Phone Neal Villarreal DO Primary Care Provider [phone] Neal Villarreal DO Primary Care Provider [phone] Encounter Details Date Type Department Care Team (Late st Contact Info) Description 11/01/2024 Ancillary Orders [facility], X-Ray - [facility] [address] [place] [address] Neal Villarreal DO 179 [facility] [address] [place], [place] [id number] [email or web address] Acute cough (Primary Dx) Social History Tobacco [...] clinician's provided indication for this examination in [facility]: Cough. COMPARISON: Chest radiography dated October [...] cough documented in this encounter Care Teams Entertainment Lawyer Relationship Specialty Start Date End Date Neal Villarreal A, DO [email or web address] PCP - General Internal Medicine 11/19/17 06/20/25 Neal Villarreal CatherineDO 179 [place] [address] [email or web address] PCP - General Internal Medicine 06/21/25 documented as of this encounter Additional Source Comments The information contained in this document represents components of the legal health record. It is not the complete legal health record.[facility]
--- OUTSIDE RECORDS SUMMARY | 2025-07-21 12:31 | XMS_ITS | Encounter Summary ---
Author Organization [facility] Address [address] [place] [address] Phone Care Team Providers Care Cargo Inspector Name Role Phone Neal Villarreal DO Primary Care Provider [phone] Neal Villarreal DO Primary Care Provider [phone] Encounter Details Date Type Department Care Team (Late st Contact Info) Description 01/29/2023 Procedure Pass [facility], [address] [address] Social History Tobacco Use Types Packs/Day Years [...] documented as of this encounter Care Teams Cargo Inspector Relationship Specialty Start Date End Date Neal Villarreal DO PCP - General Internal Medicine 11/19/17 06/20/25 Neal Villarreal DO [address] [place] [address] [email or web address] PCP - General Internal Medicine 06/21/25 documented as of this encounter Additional Source Comments The information contained in this document represents components of the legal health record. It is not the complete legal health record.[facility]
--- OUTSIDE RECORDS SUMMARY | 2025-07-21 12:31 | XMS_ITS | Encounter Summary ---
Author Organization [facility] Address [facility] [address] [place] [address] Phone Care Team Providers Care Feather Renovator Name Role Phone Mars Matias MD Unavailable [phone] Gwendolyn Vasquez GLASS MELT OPERATOR Unavailable [phone] Re Suarez GLASS MELT OPERATOR Unavailable [phone] Neal Villarreal DO Primary Care Provider [phone] Neal Villarreal DO Primary Care Provider [phone] Encounter Details Date Type Department Care Team (Late st Contact Info) Description 11/22/2019 Procedure Pass [facility], [address] [address] Social History Tobacco Use Types Packs/Day Years [...] documented as of this encounter Care Teams Feather Renovator Relationship Specialty Start Date End Date CherelleNealDO [address] [address] PCP - General Internal Medicine 11/19/17 06/20/25 Neal Villarreal DO [address] [place] [address] PCP - General Internal Medicine 06/21/25 Mars Matias MD [address] [place] [address] Historical LMR Provider 08/16/17 11/03/21 Gwendolyn Vasquez NP [address] [place] [address] Historical LMR Provider 08/16/17 2 Re Suarez NP [address] [place] [address] Historical LMR Provider 08/16/17 11/03/21 documented as of this encounter Additional Source Comments The information contained in this document represents components of the legal health record. It is not the complete legal health record.[facility]
--- OUTSIDE RECORDS SUMMARY | 2025-07-21 12:31 | XMS_ITS | Encounter Summary ---
Author Organization [facility] Address [address] [place] [address] Phone Care Team Providers Care Licensed Psychologist Manager Name Role Phone Neal Villarreal DO Primary Care Provider [phone] Neal Villarreal DO Primary Care Provider [phone] Encounter Details Date Type Department Care Team (Late st Contact Info) Description 01/29/2023 Transcribe Orders Virtual Department [address] [place] [address] Neal Villarreal DO 179 [facility] [place] [address] [place] [address] [email or web address] Breast screening (Primary Dx) Social History Tobacco [...] documented as of this encounter Care Teams Licensed Psychologist Manager Relationship Specialty Start Date End Date Neal Villarreal DO PCP - General Internal Medicine 11/19/17 06/20/25 Neal Villarreal DO [address] [place] [address] [email or web address] PCP - General Internal Medicine 06/21/25 documented as of this encounter Additional Source Comments The information contained in this document represents components of the legal health record. It is not the complete legal health record.[facility]
--- OUTSIDE RECORDS SUMMARY | 2025-07-21 12:31 | XMS_ITS | Encounter Summary ---
Author Organization [facility] Address [address] [place] [address] Phone Care Team Providers Care It Generalist Name Role Phone Neal Villarreal Primary Care Provider [phone] MikeNeal emerson DO Primary Care Provider [phone] Encounter Details Date Type Department Care Team (Late st Contact Info) Description 03/08/2024 Procedure Pass [facility], [facility] [address] [place] [address] Social History Tobacco Use Types Packs/Day Years [...] documented as of this encounter Care Teams It Generalist Relationship Specialty Start Date End Date Neal Villarreal DO [email or web address] PCP - General Internal Medicine 11/19/17 06/20/25 Neal Villarreal DO [address] [place] [address] [email or web address] PCP - General Internal Medicine 06/21/25 documented as of this encounter Additional Source Comments The information contained in this document represents components of the legal health record. It is not the complete legal health record.[facility]
--- OUTSIDE RECORDS SUMMARY | 2025-07-21 12:31 | XMS_ITS | Encounter Summary ---
Author Organization [facility] Address [address] [place] [address] Phone Care Team Providers Care Electronic Parts Salesperson Name Role Phone Mars Matias MD Unavailable Gwendolyn Vasquez STREET LIGHT SERVICER SUPERVISOR Unavailable Re Suarez STREET LIGHT SERVICER SUPERVISOR Unavailable [phone] Neal Villarreal DO Primary Care Provider [phone] Neal Villarreal DO Primary Care Provider [phone] Encounter Details Date Type Department Care Team (Late st Contact Info) Description 02/11/2020 Transcribe Orders Virtual Department [address] [place] [address] Neal Villarreal DO 179 [facility] [place] [address] [place] [address] Screening for osteoporosis (Primary Dx) Social History Tobacco Use Types [...] documented as of this encounter Results * BD DXA AXIAL (SPINE) WITH HIP [...] Not a statistically significant change from 2015. IMPRESSION: Ongoing normal bone mineral density at all 3 measured sites with nosignificant change in overall density since 2015. POS -[id number] us Neal Villarreal DO IMG BD BONE DENSITY DEXA Final R esult documented in this encounter Visit Diagnoses Diagnosis Screening for osteoporosis- Primary Special screening for osteoporosis documented in this encounter Additional Health Concerns Infection Onset Date Last Indicated Resolved Time CoV-Risk 10/17/2024 10/17/2024 10/28/2024 1:21 AM EST documented as of this encounter Care Teams Electronic Parts Salesperson Relationship Specialty Start Date End Date Neal Villarreal DO [address] [address] PCP - General Internal Medicine 11/19/17 06/20/25 Neal Villarreal DO [address] [place] [address] PCP - General Internal Medicine 06/21/25 Mars Matias MD 40 [place] [address] Historical LMR Provider 08/16/17 11/03/21 Gwendolyn Vasquez NP 21 [facility] [address] [place] [address] Historical LMR Provider 08/16/17 2 Re Suarez NP 26 [facility] 6 [place] [address] [email or web address] Historical LMR Provider 08/16/17 11/03/21 documented as of this encounter Additional Source Comments The information contained in this document represents components of the legal health record. It is not the complete legal health record.[facility]
--- OUTSIDE RECORDS SUMMARY | 2025-07-21 12:31 | XMS_ITS | Encounter Summary ---
Author Organization [facility] Address [address] [place] [address] Phone Care Team Providers Care Floor Covering Layer Name Role Phone Mars Matias MD Unavailable [phone] Gwendolyn Vasquez VALVE MACHINE OPERATOR Unavailable [phone] Re Suarez VALVE MACHINE OPERATOR Unavailable [phone] Neal Villarreal DO Primary Care Provider [phone] Neal Villarreal DO Primary Care Provider [phone] Encounter Details Date Type Department Care Team (Late st Contact Info) Description 06/27/2020 Procedure Pass [address] [address] Social History Tobacco Use Types Packs/Day Years [...] documented as of this encounter Care Teams Floor Covering Layer Relationship Specialty Start Date End Date Neal Villarreal DO 26 [facility] [address] [place] [address] PCP - General Internal Medicine 11/19/17 06/20/25 Neal Villarreal DO [address] [place] [address] [place] [address] PCP - General Internal Medicine 06/21/25 Mars Matias MD [address] [place] [address] Historical LMR Provider 08/16/17 11/03/21 Gwendolyn Vasquez NP [address] [place] [address] 104 [place] [address] Historical LMR Provider 08/16/17 2 Re Suarez NP [address] [place] [address] 6 [place] [address] Historical LMR Provider 08/16/17 11/03/21 documented as of this encounter Additional Source Comments The information contained in this document represents components of the legal health record. It is not the complete legal health record.[facility]
--- OUTSIDE RECORDS SUMMARY | 2025-07-21 12:31 | XMS_ITS | Encounter Summary ---
Author Organization [facility] Address [address] [facility] [address] [place] [address] Phone Care Team Providers Care Clam Dredger Name Role Phone Mars Matias MD Unavailable [phone] Gwendolyn Vasquez LABORER ORCHARD Unavailable Re Suarez LABORER ORCHARD Unavailable [phone] Neal Villarreal DO Primary Care Provider [phone] Neal Villarreal DO Primary Care Provider [phone] Encounter Details Date Type Department Care Team (Late st Contact Info) Description 02/28/2020 Ancillary Orders Virtual Department 30 [place] [address] Neal Villarreal DO 179 [facility] [place] [address] [place] [address] Breast cancer screening by mammogram Social History [...] documented as of this encounter Care Teams Clam Dredger Relationship Specialty Start Date End Date Neal Villarreal DO [address] [address] PCP - General Internal Medicine 11/19/17 06/20/25 Neal Villarreal DO [address] [place] [address] PCP - General Internal Medicine 06/21/25 Mars Matias MD [address] [place] [address] Historical LMR Provider 08/16/17 11/03/21 Gwendolyn Vasquez, NITHIN [address] [place] [address] Historical LMR Provider 08/16/17 2 Re Suarez NP [address] [place] [address] Historical LMR Provider 08/16/17 11/03/21 documented as of this encounter Additional Source Comments The information contained in this document represents components of the legal health record. It is not the complete legal health record.[facility]
--- OUTSIDE RECORDS SUMMARY | 2025-07-21 12:31 | XMS_ITS | Encounter Summary ---
Author Organization [facility] Address [address] [facility] [address] [place] [address] Phone Care Team Providers Care Itinerant Teacher Assistant Name Role Phone Neal Villarreal DO Primary Care Provider [phone] Neal Villarreal DO Primary Care Provider [phone] Encounter Details Date Type Department Care Team (Late st Contact Info) Description 12/27/2022 Transcribe Orders Virtual Department [address] [place] [address] Neal Villarreal DO 179 [facility] [place] [address] Left foot pain (Primary Dx) Social History [...] documented as of this encounter Care Teams Itinerant Teacher Assistant Relationship Specialty Start Date End Date Neal Villarreal DO PCP - General Internal Medicine 11/19/17 06/20/25 Neal Villarreal DO [address] [place] [address] [email or web address] PCP - General Internal Medicine 06/21/25 documented as of this encounter Additional Source Comments The information contained in this document represents components of the legal health record. It is not the complete legal health record.[facility]
--- OUTSIDE RECORDS SUMMARY | 2025-07-21 12:31 | XMS_ITS | Encounter Summary ---
Author Organization [facility] Address [address] [place] [address] Phone Care Team Providers Care Neon Glass Bender Name Role Phone Neal Villarreal DO Primary Care Provider [phone] Encounter Details Date Type Department Care Team ([facility] st Contact Info) Description 07/19/2025 Transcribe Orders Virtual Department [address] [place] [address] Neal Villarreal DO 179 [facility] [place] [address] [place] [address] Encounter for screening for osteoporosis (Primary Dx); Breast screening Social History Tobacco Use Types [...] as of this encounter Plan of Treatment Scheduled Orders Name Type Priority Associated Diagnoses Orde r Schedule DXA Screening Imaging Routine Encounter for screening for osteoporosis Expected: 08/18/2025, Expires: 07/19/2026 Mammogram Screening (Bilateral) Imaging Routine Breast screening Expected: 08/18/2025, Expires: 07/19/2026 documented as of this encounter Visit Diagnoses Diagnosis Encounter for screening for osteoporosis- Primary Breast screening Breast screening, unspecified documented in this encounter Care Teams Neon Glass Bender Relationship Specialty Start Date End Date Neal Villarreal DO [address] [place] [address] [email or web address] PCP - General Internal Medicine 06/21/25 documented as of this encounter Additional Source Comments The information contained in this document represents components of the legal health record. It is not the complete legal health record.[facility]
== END 2025-07-21 10:14 | disposition home or self-care (01) ==
LOC: HO.XRAY 10:13
PROVIDERS: PCP Internal Medicine; Visit Provider Internal Medicine
DX: M25.561 Pain in right knee (principal); M25.562 Pain in left knee; G89.29 Other chronic pain
CPT/HCPCS: 73562

== ENCOUNTER → 2025-07-21 10:22 | Outpatient (BNV) | payer MEDICARE, SELFPAY | PROVIDERS: PCP Internal Medicine; Visit Provider Radiology Diagnostic Radiology | DX: M17.0 Bilateral primary osteoarthritis of knee (principal) | CPT/HCPCS: 73562 ==

== ENCOUNTER 2025-09-27 09:02 | Outpatient (REF) | payer MEDICARE, SELFPAY ==
--- OUTSIDE RECORDS SUMMARY | 2025-04-21 04:00 | XMS_ITS | Continuity of Care Document ---
Author Organization [facility] Address [address] [place] [address] Phone Care Team Providers Care Pediatric Associate Name Role Phone Alex BARRAZA, RVT, GERALD, Mykel Unavailable U navailable Allergies, Adverse Reactions, Alerts Substance Reaction Status Criticality POTASSIUM CLAVULANATE Active No Inf ormation AMOXICILLIN TRIHYDRATE Active No In formation Procedures Procedure Date Office/Outpt E&M Established 25 Mins- CT & [place] Duplex Scan-extrem Veins; Comp- CT & MA Office/Outpt E&M Established 15 Mins- CT & [...] & MA Offic Cons New/estab Mod-hi 60 24 Duplex Scan-extrem Veins; Comp Advance Directives Directive Yes / No Effective Date File Name Other Directive No 04/21/2025 N/A WARNING:The information contained in this section [...] Providers Copied on Encounter Office/Outpt E&M Established 25 Mins- CT & [place] [facility], [address] [place] [address] [address] [address], [id number], tel:[phone] CV[place] - [place] Varicose veins of bilateral lower extremities with other complicationsL ocalized edemaCramp and spasmRestless legs syndromeType 2 diabetes mellitus without complicationsE ssential (primary) hypertensionPr uritus, unspecified 5 Alex BARRAZA RVT, GERALD Hogue. [address] [place] [address], [place], [place], [id number] , [place]. tel:[phone] Referring Provider: Neal Georges, [address] [place] [address] [place], [address]. tel:[phone] [facility], [address] [place] [address] [address] [address], [id number], tel:[phone] CVR - [facility] Chronic venous hypertension (idiopathic) with other complications of bilateral lower extremity 5 Alex BARRAZA RVT, RPVI Robert. [address] [place] [address], [place], [place], [id number] , [place]. tel:[phone] Referring Provider: Neal Georges, [address] [place] [address] [place], [address]. tel:[phone] Office/Outpt E&M Established 15 Mins- CT & [place] [facility], [address] [place] [address] [address], [id number], [place] tel:[phone] [place] Cramp and spasmRestless legs syndromePrurit us, unspecifiedTyp e 2 diabetes mellitus without complicationsE ssential (primary) hypertensionLo calized edema 4 Alex BARRAZA RVT, GERALD Hogue. [address] [facility], [address], [place], [place], [id number] , [place]. tel:[phone] Referring Provider: Neal Georges, [address], [place], [address]. tel:[phone] [place] [facility], [address] [place] [address] Dr Jerome [address]Suite [place], [id number], [place] tel:[phone] CVR - [facility] Varicose veins of bilateral lower extremities with pain 4 Alex BARRAZA RVT, GERALD Hogue. [address] [facility], [address], [place], [place], [id number] , [place]. tel:[phone] Referring Provider: Neal Georges, [address] [facility] [address], [place], [address]. tel:[phone] [facility], [address] [place] [address] Dr Jerome [address]Suite [place] Barrera [place], [id number], [place] tel:[phone] [place] Encounter for follow-up examination after completed treatment for conditions other than malignant neoplasmChroni c venous hypertension (idiopathic) with other complications of left lower extremity 4 Alex BARRAZA RVT, GERALD Hogue. [address] [facility], [address], [place], [place], [id number] , [place]. tel:[phone] Referring Provider: Neal Georges, [address], [place], [address]. tel:[phone] [facility], [address] [place] [address] Dr Jerome [address]Suite [place] Bar[place], [id number], [place] tel:[phone] CV[place] - [place] Encounter for follow-up examination after completed treatment for conditions other than malignant nePain in left leg 4 Alex BARRAZA RVT, GERALD Hogue. [address] [place] [address], [address], [facility] [place], [id number] , [place]. tel:[phone] Referring Provider: Neal Georges, [address] [place], [address]. tel:[phone] [facility], [address] [place] [address] [address]Suite [place], [id number], [place] tel:[phone] [place] - [place] Varicose veins of left lower extremity with other complications 4 Matt Cormier . [address] [place] [address], [address], [facility], [id number] , [place]. tel:[phone] Referring Provider: Neal Georges, [address], [place], [address]. tel:[phone] [facility], [address] [place] [address] [address] [place], [id number], [place] tel:[phone] [place] Varicose veins of left lower extremity with other complications 4 Alex BARRAZA RVT, GERALD Hogue. [address] [place] [address], [address], [place], [id number] , [place]. tel:[phone] Referring Provider: Neal Georges, [address] [place], [address]. tel:[phone] [facility], [address] [place] [address] [address], [id number], [place] tel:[phone] [place] Encounter for follow-up examination after completed treatment for conditions other than malignant neoplasmPain in right leg 4 Alex BARRAZA RVT, GERALD Hogue. [facility], [address], [facility] [place], [id number] , [place]. tel:[phone] Referring Provider: Neal Georges, [address], [place], [address]. tel:[phone] [facility], [address] [place] [address] [address], [id number], [place] tel:[phone] CV[place] - [place] Encounter for follow-up examination after completed treatment for conditions other than malignant neoplasmVarico se veins of right lower extremity with pain Nov-0 5- 4 Alex BARRAZA RVT, GERALD Houge. [address] [facility], [address], [place], [place], [id number] , [place]. [phone] Referring Provider: Neal Georges, [address], [place], [address]. tel:[phone] [place] [facility], [address] [place] [address] [address], [id number], [place] tel:[phone] [place] Varicose veins of right lower extremity with other complications Nov-0 4 Alex BARRAZA RVT, GERALD Hogue. [address] [facility], Suite [facility], [place], [place], [id number] , [place]. tel:[phone] Referring Provider: Neal Georges, [address], [place], [address]. tel:[phone] [facility], [address] [place] [address] [address], [id number], [place] tel:[phone] [place] Varicose veins of right lower extremity with other complications Oct-3 0- 4 Alex BARRAZA RVT, RPVI Robert. [address] [place] [address], [address], [place], [place], [id number] , [place]. tel:[phone] Referring Provider: Neal Georges, [address], [place], [address]. tel:[phone] [facility], [address] [place] [address] [address], [id number], [place] tel:[phone] [place] Varicose veins of right lower extremity with other complications Jul- 4 Alex BARRAZA, CRISSY, GERALD Hogue. [address] [facility], Suite [facility], [place], [place], [id number] , [place]. tel:[phone] Referring Provider: Neal Georges, [address], [place], [address]. tel:[phone] [facility], [address] [place] [address] Dr Jerome 1000[address] 1000[place], [id number], [place] tel:[phone] [place] No Information 4 Alex BARRAZA RVT, GERALD Hogue. [facility], Suite [facility], [place], [place], [id number] , [place]. tel:[phone] Office/Outpt E&M Established 10 Mins- Telemedicine CT & [place] [facility], [address] [place] [address] Dr Jerome 1000[address] 1000[place], [id number], [place] tel:[phone] [place] Chronic venous hypertension (idiopathic) with other complications of bilateral lower extremityCramp and spasmRestless legs syndromeType 2 diabetes mellitus without complicationsE ssential (primary) hypertensionPr uritus, unspecified Jan-0 4 Alex BARRAZA, CRISSY, GERALD Hogue. [address] [place] [address], [address], [place], [place], [id number] , [place]. tel:[phone] Referring Provider: Neal Georges, [address], [place], [address]. tel:[phone] Offic Cons New/estab Mod-hi 60 [facility], [address] [place] [address] Dr Jerome [address] [place] Barrera [place], [id number], [place] tel:[phone] [place] Cramp and spasmLocalized edemaVaricose veins of bilateral lower extremities with other complicationsP ain in right lower legPain in left lower legPain in right legType 2 diabetes mellitus without complicationsR estless legs syndromeEssent ial (primary) hypertensionVe nous insufficiency (chronic) (peripheral)Pr uritus, unspecifiedPai n in left leg 4 Alex BARRAZA RVT, GERALD Hogue. [address] [facility], Suite [facility], [place], [place], [id number] , [place]. tel:[phone] Referring Provider: Neal Georges, [address] [place], [address]. tel:[phone] [facility], [address] [facility] [address], [place], [id number], [place] tel:[phone] CVR - [facility] Chronic venous hypertension (idiopathic) with other complications of bilateral lower extremity 4 Alex BARRAZA RVT, GERALD Hogue. [address] [facility], [place] [address], [place], [place], [id number] , [place]. tel:[phone] Referring Provider: Neal Georges, [address] [place], [address]. tel:[phone] Family History Family Member Type Diagnosis Age At Onset No Information Payers Payer name Insurance type Covered green party ID Nia rodriguez(s) [place] [id number] Social History Type Description Quantity Date Captured [...] Diet education completed Goal Diet education completed Goal Diet education [...] Body mass index (BMI) 33.0-33.9, adult) ordered History Of Present Illness Encounter Date Complaint History Of Prese nt Illness No Information Functional Status Date Functional Assessmen t No Information Instructions Date Instruction Additional Infor balwinder Pre and post instruc tions reviewed and provided Related to Varicose veins of bilateral lower extremities with other complications Patient education booklet given Related to Varicose veins of bilateral lower extremities with other complications Lifestyle education Related to B donavon mass index (BMI) 33.0-33.9, adult Giving Encouragement to exercise Related to Body mass index (BMI) 33.0-33.9, adult Diet education Related to Body mass index (BMI) 33.0-33.9, adult Patient education booklet given Related to Localized edema Compression stocking usage as conservative measure Related to Localized edema Lifestyle education Related to B donavon mass index (BMI) 33.0-33.9, adult Giving Encouragement to exercise Related to Body mass index (BMI) 33.0-33.9, adult Diet education Related to Body mass index (BMI) 33.0-33.9, adult Patient education booklet given Related to Chronic venous hypertension (idiopathic) with other complications of bilateral lower extremity Compression stocking usage as conservative measure Related to Chronic venous hypertension (idiopathic) with other complications of bilateral lower extremity Patient education booklet given Related to Varicose veins of bilateral lower extremities with other complications Nitin-05-2024 Lifestyle education Related to B donavon mass index (BMI) 33.0-33.9, adult Giving Encouragement to exercise Related to Body mass index (BMI) 33.0-33.9, adult Diet education Related to Body mass index (BMI) 33.0-33.9, adult Assessments Type Assessment Date No Information Patient Care Teams Name Effective Dates (start - stop) Status Members No Information
[2025-09-27 13:56] LABS: Alanine Aminotransferase 19 U/L (0-31); Albumin Level 4.2 g/dL (3.5-5.0); Alkaline Phosphatase 75 U/L (39-117); Anion Gap 13 (12-20); Aspartate Amino Transferase 28 U/L (5-31); Blood Urea Nitrogen 14 mg/dL (9-16); Calcium 9.3 mg/dL (8.4-10.2); Carbon Dioxide 29 mmol/L (22-29); Chloride 104 mmol/L (96-108); Estimated Glomerular Filt Rate > 60; Potassium 3.9 mmol/L (3.3-5.1); Sodium 142 mmol/L (135-145); Total Protein 7.6 g/dL (6.5-8.0)
== END 2025-09-27 09:03 | disposition home or self-care (01) ==
LOC: HO.MANLDS 09:02
PROVIDERS: Visit Provider Internal Medicine
DX: I10 Essential (primary) hypertension (principal); E11.9 Type 2 diabetes mellitus without complications
CPT/HCPCS: 36415; 80053; 83036